=== PATIENT | male | born 1940 | race African-American/Black ===

== ENCOUNTER 2019-10-16 09:32 | Inpatient (IN) | payer MEDICARE, OTHER ==
[2019-10-16] MEDS ORDERED: DILTIAZEM HCL INJ 25 MG/5 ML VIAL IV ONE ×3 (10:18→17:45)
[2019-10-16] MEDS ORDERED: DILTIAZEM HCL/D5W 125 MG/125 ML RTUINJ IV PRN (10:18)
--- NOTE | 2019-10-16 10:26 | ER Document Report ---
ED General - General Chief Complaint: Altered Mental Status Stated Complaint: ALTERED MENTAL STATTUS Time Seen by Provider: 10/16/19 10:05 - HPI Notes: 78-year-old man with long-standing history of type 2 diabetes and chronic atrial fibrillation who is been marginally compliant with medications and is now brought to emergency department for evaluation of generalized weakness and mild altered mental status accompanied here by his [id number] who is his primary control analyst. Patient says that he feels nauseated but denies other more specific complaints at this time. Specifically he denies chest pain or shortness of breath and he denies vomiting, fever, chills or dysuria. Onset Duration: Insidious onset over several days. Precipitating factors: Missed medication. Relieving factors none. Severity moderate. - Related Data Allergies/Adverse Reactions: No Known Allergies Allergy (Unverified 10/16/19 10:53) Past Medical History - General Information source: Patient, Relative Cannot obtain history due to: Altered mental status - Social History Smoking Status: Unknown if Ever Smoked Family History: Reviewed & Not Pertinent - Past Medical History Cardiac Medical History: Reports: Hx Atrial Fibrillation Endocrine Medical History: Reports: Hx Diabetes Mellitus Type 2 Review of Systems - Review of Systems Notes: Constitutional: Negative for fever. HENT: Negative for sore throat. Eyes: Negative for visual changes. Cardiovascular: Negative for chest pain. Respiratory: Negative for shortness of breath. Gastrointestinal: Nausea present. Negative for abdominal pain, vomiting or d iarrhea. Genitourinary: Negative for dysuria. Musculoskeletal: Negative for back pain. Skin: Negative for rash. Neurological: Negative for headaches, focal weakness or numbness. 10 point ROS negative except as marked above and in HPI. Physical Exam - Vital signs Vitals: BP Pulse Ox 153/110 H 99 10/16/19 09:41 10/16/19 09:41 Notes: GENERAL: Mildly obese, well-nourished appearing in no acute distress. SKIN: Good turgor no rashes. HEAD: Normocephalic atraumatic. EYES: PERRLA. Conjunctivae and sclerae clear. EARS: CANALS AND TMS CLEAR. NOSE: CLEAR. MOUTH: Tacky mucosa. Good dentition. No stridor or edema. No drooling. NECK: Supple. No masses or thyromegaly. No adenopathy. Carotids 2+ without bruits. No JVD. BACK: Symmetrical without tenderness. CHEST: Respirations unlabored. Breath sounds clear and symmetrical. HEART: Rapid irregularly irregular rhythm. No murmur gallop or rub. ABDOMEN: Soft nontender without masses, organomegaly or rebound. Bowel sounds normally active. No bruits. GENITALIA: Deferred. EXTREMITIES: No edema. No calf tenderness. Cap refill less than 1.5 seconds. Dorsalis pedis and posterior tibial pulses 3+ and symmetrical. NEUROLOGICAL: GCS 14 with subtraction for temporal disorientation. Responses are slightly slow but appropriate. Alert and oriented x3. Normal gait. Fluent speech. Cranial nerves II through XII intact. Sensorimotor and cerebellar normal. Normal tone. Course - Vital Signs Vital signs: Temp Pulse Resp BP Pulse Ox 97.9 F 16 154/111 H 95 10/16/19 15:50 10/16/19 16:01 10/16/19 15:27 10/16/19 16:01 - Laboratory Result Diagrams: 10/16/19 10:12 10/16/19 14:59 Laboratory results interpreted by me: 10/16/19 10/16/19 10/16/19 09:47 10:12 11:01 WBC 10.9 H Plt Count 140 L Band Neutrophils % 2 L Lymphocytes % (Manual) 9 L Abs Neuts (Manual) 8.6 H VBG pH 7.28 L VBG pCO2 30.8 L VBG HCO3 14.3 L Sodium Carbon Dioxide Anion Gap BUN Creatinine Est GFR (MDRD) Non-Af Glucose POC Glucose 469 H* Direct Bilirubin NT-Pro-B Natriuret Pep 10/16/19 10/16/19 14:59 14:59 WBC Plt Count Band Neutrophils % Lymphocytes % (Manual) Abs Neuts (Manual) VBG pH VBG pCO2 VBG HCO3 Sodium 135.3 L Carbon Dioxide 10 L* Anion Gap 26 H BUN 39 H Creatinine 1.39 H Est GFR (MDRD) Non-Af 49 L Glucose 498 H* POC Glucose Direct Bilirubin 0.5 H NT-Pro-B Natriuret Pep 3650 H Critical Care Note - Critical Care Note Total time excluding time spent on procedures (mins): 35 Comments: Patient will receive IV diltiazem bolus and drip at this time. Discharge - Discharge Clinical Impression: Diabetic ketoacidosis, Dehydration, Atrial fibrillation with rapid ventricular response Condition: Serious Disposition: ADMITTED INPATIENT Admitting Provider: Ty Unit Admitted: ESTEPHANIA
[2019-10-16 10:28] LABS: HEMATOCRIT 45.8 % (37.9-51.0); HEMOGLOBIN 15.3 g/dL (13.5-17.0); MEAN CORPUSCULAR HEMOGLOBIN 31.2 pg (27.0-33.4); MEAN CORPUSCULAR HGB CONC 33.4 g/dL (32.0-36.0); MEAN CORPUSCULAR VOLUME 93 fl (80-97); PLATELET COUNT 140 10^3/uL (150-450); RED CELL DISTRIBUTION WIDTH 13.6 % (11.5-14.0); WHITE BLOOD COUNT 10.9 10^3/uL (4.0-10.5)
[2019-10-16 10:56] LABS: ABSOLUTE MONOCYTES # (MANUAL) 1.3 10^3/uL (0.1-1.4); BAND NEUTROPHILS % (MANUAL) 2 % (3-5); BASOPHILS % (MANUAL) 0 % (0-2); EOSINOPHILS % (MANUAL) 0 % (0-6); LYMPHOCYTES % (MANUAL) 9 % (13-45); MONOCYTES % (MANUAL) 12 % (3-13); RBC MORPHOLOGY COMMENT NORMO-CYTIC/CHROMIC; SEGMENTED NEUTROPHILS % (MAN) 77 % (42-78); TOTAL CELLS COUNTED 100
[2019-10-16 10:57] LABS: PLATELET COMMENT ADEQUATE
--- NOTE | 2019-10-16 11:06 | RADIOLOGY REPORT (SQ) ---
EXAM DESCRIPTION: CHEST SINGLE VIEW COMPLETED DATE/TIME: 10/16/2019 10:53 am REASON FOR STUDY: AF COMPARISON: None. EXAM PARAMETERS: NUMBER OF VIEWS: One view. TECHNIQUE: Single frontal radiographic view of the chest acquired. RADIATION DOSE: NA LIMITATIONS: None. FINDINGS: LUNGS AND PLEURA: No consolidation, sizable pleural effusion or pneumothorax. MEDIASTINUM AND HILAR STRUCTURES: No mediastinal or hilar contour abnormality. HEART AND VASCULAR STRUCTURES: Borderline cardiomegaly. The pulmonary vasculature is within normal l imits. BONES: No acute findings. HARDWARE: None in the chest. OTHER: No other findings. IMPRESSION: Borderline cardiomegaly without a superimposed acute cardiopulmonary process. TECHNICAL DOCUMENTATION: JOB ID: [id number] [employer]- All Rights Reserved Reading location - IP/workstation name: [email or web address]
[2019-10-16 11:22] LABS: VENOUS BLOOD BASE EXCESS -10.9 mmol/L; VENOUS BLOOD HCO3 14.3 mmol/L (20-32); VENOUS BLOOD PCO2 30.8 mmHg (35-63); VENOUS BLOOD PH 7.28 (7.30-7.42)
[2019-10-16 15:36] LABS: ALBUMIN 3.8 g/dL (3.5-5.0); ALKALINE PHOSPHATASE 85 U/L (38-126); ASPARTATE AMINO TRANSFERASE 22 U/L (17-59); BILIRUBIN,DIRECT 0.5 mg/dL (0.0-0.4); BILIRUBIN,TOTAL 1.2 mg/dL (0.2-1.3); BLOOD UREA NITROGEN 39 mg/dL (7-20); CALCIUM 9.2 mg/dL (8.4-10.2); CREATINE KINASE 102 U/L (55-170); DIGOXIN 1.52 ng/mL (0.8-2.0); POTASSIUM 4.2 mmol/L (3.6-5.0); TOTAL PROTEIN 6.8 g/dL (6.3-8.2)
[2019-10-16 15:40] LABS: CHLORIDE 99 mmol/L (98-107)
[2019-10-16 15:43] LABS: GLUCOSE 498 mg/dL (75-110)
[2019-10-16 15:44] LABS: ANION GAP 26 (5-19); CARBON DIOXIDE 10 mmol/L (22-30)
[2019-10-16 15:46] LABS: CREATINE KINASE MB 1.48 ng/mL (<4.55)
[2019-10-16 16:01] LABS: TROPONIN I 0.039 ng/mL
[2019-10-16] MEDS ORDERED: LIDOCAINE 1% INJ-PF (10 MG/ML) 30 ML SDV ONE (16:24)
[2019-10-16] MEDS ORDERED: GLUCAGON,HUMAN RECOMB 1 MG INJ IM PRN ×2 (16:51→18:41)
[2019-10-16] MEDS ORDERED: NORMAL SALINE 100 ML with INSULIN REGULAR, HUMAN 100 UNIT IV PRN ×4 (16:51→18:41)
[2019-10-16] MEDS ORDERED: DEXTROSE 50%-WATER 25 GM/50 ML DISP.SYRIN IV PRN ×4 (16:51→18:41)
[2019-10-16] MEDS ORDERED: DEXTROSE 40% GEL 15 GM TUBE PO PRN ×4 (16:51→18:41)
[2019-10-16] MEDS ORDERED: NORMAL SALINE 1000 ML 1,000 ML IV ONE (16:54)
--- NOTE | 2019-10-16 17:42 | RADIOLOGY REPORT (SQ) ---
EXAM DESCRIPTION: CHEST SINGLE VIEW COMPLETED DATE/TIME: 10/16/2019 5:24 pm REASON FOR STUDY: line placement COMPARISON: 10/16/2019 EXAM PARAMETERS: NUMBER OF VIEWS: One view. TECHNIQUE: Single frontal radiographic view of the chest acquired. RADIATION DOSE: NA LIMITATIONS: None. FINDINGS: LUNGS AND PLEURA: No opacities, masses or pneumothorax. No pleural effusion. MEDIASTINUM AND HILAR STRUCTURES: No masses. Contour normal. HEART AND VASCULAR STRUCTURES: Stable mild cardiomegaly BONES: No acute findings. HARDWARE: Right jugular central line tip superior vena cava OTHER: No other significant finding. IMPRESSION: Right jugular central line tip superior vena cava, no pneumothorax. Mild cardiomegaly TECHNICAL DOCUMENTATION: JOB ID: [id number] [employer]- All Rights Reserved Reading location - IP/workstation name: [email or web address]
[2019-10-16] MEDS ORDERED: LIDOCAINE 1% INJ-PF (10 MG/ML) 30 ML SDV INFIL ONE (18:13)
[2019-10-16] MEDS ORDERED: NORMAL SALINE 1000 ML 1,000 ML IV PRN (18:41)
[2019-10-16] MEDS ORDERED: (PENDING PHARMACY ID) (Acetaminophen [Tylenol Extra Strength 500 Mg Tablet] 500 MG) PO PRN (18:52)
--- NOTE | 2019-10-16 18:54 | PDOC H&P ---
History of Present Illness Admission Date/PCP: 10/16/19 17:47 DESIRAE STEWART MD History of Present Illness: OREN CONTRERAS is a 78 year old male, he has a history of chronic atrial fib rillation, type 2 diabetes mellitus, he was on the schedule to be seen in the office but did not show up, he was brought to the emergency room by the [id number] for evaluation of altered mental status, in the emergency room he was found to be in DKA with atrial fibrillation with rapid ventricular response. Patient apparently has not been compliant with his medication, he has poor medication adherence, is confused cannot answer question appropriately. The serum glucose was 498 when he presented to the ER the anion gap was 26, venous pH was 7.28, he was started on insulin drip and also Cardizem drip and admitted to intermediate care unit for further evaluation. Past Medical History Cardiac Medical History: Reports: Atrial Fibrillation, Hypertension Endocrine Medical History: Reports: Diabetes Mellitus Type 2 Past Surgical History Past Surgical History: Reports: Cardiac Catheterization Social History Smoking Status: Never Smoker Family History Family History: Reviewed & Not Pertinent Parental Family History Reviewed: Yes Children Family History Reviewed: Yes Sibling(s) Family History Reviewed.: Yes Medication/Allergy Home Medications: Acetaminophen [Tylenol Extra Strength 500 mg Tablet] 500 mg PO Q6HP PRN 10/16/19 Atorvastatin Calcium [Lipitor 20 mg Tablet] 20 mg PO DAILY 10/16/19 Digoxin [Lanoxin 0.125 mg Tablet] 0.125 mg PO DAILY 10/16/19 Empagliflozin [Jardiance] 25 mg PO DAILY 10/16/19 Melatonin [Melatonin 3 mg Tablet] 3 mg PO QPM 10/16/19 Metoprolol Tartrate [Lopressor 25 mg Tablet] 25 mg PO Q12 10/16/19 Rivaroxaban [Xarelto] 20 mg PO DAILY 10/16/19 Sertraline HCl [Zoloft] 25 mg PO DAILY 10/16/19 Sitagliptin Phos/Metformin HCl [Janumet Xr 100-1,000 mg Tablet] 1 each PO QPM 10/16/19 Allergies/Adverse Reactions: No Known Allergies Allergy (Unverified 10/16/19 10:53) Review of Systems ROS unobtainable: Due to mental status Physical Exam Vital Signs: Temp Pulse Resp BP Pulse Ox 97.9 F 16 154/111 H 95 10/16/19 15:50 10/16/19 16:01 10/16/19 15:27 10/16/19 16:01 Intake & Output 10/15/19 10/16/19 10/17/19 06:59 06:59 06:59 Intake Total 5 Balance 5 Weight 104.7 kg General appearance: PRESENT: no acute distress Head exam: PRESENT: atraumatic, normocephalic Eye exam: PRESENT: conjunctiva pink, EOMI, PERRLA Ear exam: PRESENT: normal external ear exam Mouth exam: PRESENT: moist, tongue midline Neck exam: PRESENT: full ROM Respiratory exam: PRESENT: clear to auscultation kamla Cardiovascular exam: PRESENT: RRR, +S1, +S2 Vascular exam: PRESENT: normal capillary refill GI/Abdominal exam: PRESENT: normal bowel sounds, soft Rectal exam: PRESENT: deferred Neurological exam: PRESENT: alert, CN II-XII grossly intact Psychiatric exam: PRESENT: appropriate affect, normal mood Skin exam: PRESENT: dry, intact, warm Results Laboratory Results: 10/16/19 10:12 10/16/19 14:59 10/16/19 10/16/19 10/16/19 10:12 10:12 10:12 WBC 10.9 H RBC 4.90 Hgb 15.3 Hct 45.8 MCV 93 MCH 31.2 MCHC 33.4 RDW 13.6 Plt Count 140 L Seg Neutrophils % Not Reportable VBG pH VBG pCO2 VBG HCO3 VBG Base Excess Sodium Cancelled Cancelled Potassium Cancelled Cancelled Chloride Cancelled Cancelled Carbon Dioxide Cancelled Cancelled Anion Gap Cancelled Cancelled BUN Cancelled Cancelled Creatinine Cancelled Cancelled Est GFR ( Amer) Cancelled Cancelled Est GFR (Non-Af Amer) Cancelled Cancelled Glucose Cancelled Cancelled Lactic Acid Calcium Cancelled Cancelled Total Bilirubin Cancelled Cancelled AST Cancelled Cancelled Alkaline Phosphatase Cancelled Cancelled Total Protein Cancelled Cancelled Albumin Cancelled Cancelled 10/16/19 10/16/19 10/16/19 11:01 14:59 14:59 WBC RBC Hgb Hct MCV MCH MCHC RDW Plt Count Seg Neutrophils % VBG pH 7.28 L VBG pCO2 30.8 L VBG HCO3 14.3 L VBG Base Excess -10.9 Sodium 135.3 L Potassium 4.2 Chloride 99 Carbon Dioxide 10 L* Anion Gap 26 H BUN 39 H Creatinine 1.39 H Est GFR ( Amer) > 60 Est GFR (Non-Af Amer) Glucose 498 H* Lactic Acid 2.0 Calcium 9.2 Total Bilirubin 1.2 AST 22 Alkaline Phosphatase 85 Total Protein 6.8 Albumin 3.8 10/16/19 10/16/19 10/16/19 10:12 10:12 10:12 Creatine Kinase Cancelled Cancelled CK-MB (CK-2) Cancelled Troponin I Cancelled NT-Pro-B Natriuret Pep Cancelled 10/16/19 10/16/19 10/16/19 10:12 14:59 14:59 Creatine Kinase 102 CK-MB (CK-2) Cancelled 1.48 Troponin I Cancelled 0.039 NT-Pro-B Natriuret Pep Cancelled 3650 H Impressions: Chest X-Ray 10/16/19 16:45 IMPRESSION: Right jugular central line tip superior vena cava, no pneumothorax. Mild cardiomegaly Assessment & Plan - Diagnosis (1) Diabetic ketoacidosis Qualifiers: Diabetes mellitus type: type 2 Diabetes mellitus complication detail: without coma Qualified Code(s): E11.10 - Type 2 diabetes mellitus with ketoacidosis without coma Is this a current diagnosis for this admission?: Yes Plan: Patient in DKA the most likely etiology is because of poor medication adherence, he will be treated with insulin drip and also start his regular medication (2) Atrial fibrillation with rapid ventricular response Is this a current diagnosis for this admission?: Yes Plan: Continue with intravenous Cardizem for rate control, patient already on anticoagulant
[2019-10-16] MEDS ORDERED: (PENDING PHARMACY ID) (Sitagliptin Phos/Metformin Hcl [Janumet Xr 100-1,000 Mg Tablet] 1 E PO SCH (19:00)
[2019-10-16] MEDS ORDERED: (PENDING PHARMACY ID) (Sertraline Hcl [Zoloft] 25 MG) PO SCH (19:00)
[2019-10-16] MEDS ORDERED: ENOXAPARIN SODIUM INJ 40 MG/0.4 ML DISP.SYRIN SUBCUT SCH (19:00)
[2019-10-16] MEDS ORDERED: (PENDING PHARMACY ID) (Empagliflozin [Jardiance] 25 MG) PO SCH (19:00)
[2019-10-16] MEDS ORDERED: INSULIN REG, HUMAN 100 UNIT/ML 3 ML VIAL (PYX) ONE (19:12)
[2019-10-16] MEDS ORDERED: ACETAMINOPHEN 325 MG TABLET PO PRN (19:25)
[2019-10-16 20:06] LABS: FREE T4 (FREE THYROXINE) 1.2 ng/dL (0.78-2.19)
[2019-10-16 20:20] LABS: THYROID STIMULATING HORMONE 0.51 uIU/mL (0.47-4.68)
[2019-10-16] MEDS: DILTIAZEM HCL/D5W 125 MG/125 ML RTUINJ IV PRN (21:18)
[2019-10-16 22:14] LABS: BLOOD UREA NITROGEN 38 mg/dL (7-20); CALCIUM 8.9 mg/dL (8.4-10.2); CARBON DIOXIDE 14 mmol/L (22-30); GLUCOSE 348 mg/dL (75-110); POTASSIUM 3.6 mmol/L (3.6-5.0)
[2019-10-16 22:20] LABS: CHLORIDE 103 mmol/L (98-107)
[2019-10-16 22:25] LABS: ANION GAP 21 (5-19)
[2019-10-16 22:26] LABS: CREATINE KINASE MB 1.4 ng/mL (<4.55); TROPONIN I 0.04 ng/mL
[2019-10-16] MEDS: RIVAROXABAN 10 MG TABLET PO SCH (22:35)
[2019-10-16] MEDS: ATORVASTATIN CALCIUM 20 MG TABLET PO SCH (22:36)
[2019-10-16] MEDS: MELATONIN 3 MG TABLET PO SCH (22:36)
[2019-10-16] MEDS: METOPROLOL TARTRATE 25 MG TABLET PO SCH (22:36)
[2019-10-16] MEDS: DIGOXIN 0.125 MG TABLET PO SCH (22:38)
[2019-10-17] MEDS ORDERED: INFLUENZA QUAD (6MOS+) 2019-20 VAC 0.5 ML SYR IM ONE (01:37)
[2019-10-17 02:59] LABS: ANION GAP 12 (5-19); BLOOD UREA NITROGEN 38 mg/dL (7-20); CALCIUM 8.8 mg/dL (8.4-10.2); CARBON DIOXIDE 23 mmol/L (22-30); CHLORIDE 104 mmol/L (98-107); GLUCOSE 117 mg/dL (75-110); POTASSIUM 3.2 mmol/L (3.6-5.0)
[2019-10-17 06:05] LABS: INTERNATIONAL RATION (INR) 2.06; PROTHROMBIN TIME 23.5 SEC (11.4-15.4)
[2019-10-17 06:15] LABS: HEMATOCRIT 43.6 % (37.9-51.0); HEMOGLOBIN 14.4 g/dL (13.5-17.0); MEAN CORPUSCULAR HEMOGLOBIN 30.8 pg (27.0-33.4); MEAN CORPUSCULAR HGB CONC 33.1 g/dL (32.0-36.0); MEAN CORPUSCULAR VOLUME 93 fl (80-97); PLATELET COUNT 135 10^3/uL (150-450); RED BLOOD COUNT 4.69 10^6/uL (4.35-5.55); RED CELL DISTRIBUTION WIDTH 13.7 % (11.5-14.0); WHITE BLOOD COUNT 11.9 10^3/uL (4.0-10.5)
[2019-10-17 06:22] LABS: ALBUMIN 3.3 g/dL (3.5-5.0); ALKALINE PHOSPHATASE 76 U/L (38-126); ANION GAP 18 (5-19); ASPARTATE AMINO TRANSFERASE 20 U/L (17-59); BILIRUBIN,DIRECT 0.5 mg/dL (0.0-0.4); BILIRUBIN,TOTAL 1.2 mg/dL (0.2-1.3); BLOOD UREA NITROGEN 38 mg/dL (7-20); CALCIUM 8.9 mg/dL (8.4-10.2); CARBON DIOXIDE 17 mmol/L (22-30); CHLORIDE 105 mmol/L (98-107); CHOLESTEROL 222.57 mg/dL (0-200); GLUCOSE 235 mg/dL (75-110); PHOSPHORUS 4.3 mg/dL (2.5-4.5); POTASSIUM 3.7 mmol/L (3.6-5.0); TOTAL PROTEIN 5.9 g/dL (6.3-8.2); TRIGLYCERIDES 122 mg/dL (<150)
[2019-10-17 06:33] LABS: CREATINE KINASE MB 1.49 ng/mL (<4.55); DIRECT LDL 185 mg/dL (<100); TROPONIN I 0.039 ng/mL
[2019-10-17 06:45] LABS: ABSOLUTE LYMPHOCYTES# (MANUAL) 0.8 10^3/uL (0.5-4.7); ABSOLUTE MONOCYTES # (MANUAL) 1.2 10^3/uL (0.1-1.4); BASOPHILS % (MANUAL) 0 % (0-2); EOSINOPHILS % (MANUAL) 0 % (0-6); LYMPHOCYTES % (MANUAL) 7 % (13-45); MONOCYTES % (MANUAL) 10 % (3-13); SEGMENTED NEUTROPHILS % (MAN) 83 % (42-78); TOTAL CELLS COUNTED 100
[2019-10-17 06:46] LABS: PLATELET COMMENT DECREASED; RBC MORPHOLOGY COMMENT NORMO-CYTIC/CHROMIC
[2019-10-17] MEDS: INSULIN LISPRO 100 UNIT/ML 3 ML VIAL SUBCUT SCH ×4 (08:23→21:26)
[2019-10-17] MEDS: METFORMIN HCL 500 MG TABLET PO SCH ×2 (08:23→17:02)
[2019-10-17] MEDS: SITAGLIPTIN PHOSPHATE 50 MG TABLET PO SCH ×2 (08:23→17:01)
[2019-10-17] MEDS: DILTIAZEM HCL/D5W 125 MG/125 ML RTUINJ IV PRN (08:24)
[2019-10-17] MEDS: SERTRALINE HCL 50 MG TABLET PO SCH (09:13)
[2019-10-17] MEDS: ATORVASTATIN CALCIUM 20 MG TABLET PO SCH (09:13)
[2019-10-17] MEDS: METOPROLOL TARTRATE 25 MG TABLET PO SCH ×2 (09:13→21:25)
[2019-10-17] MEDS: DIGOXIN 0.125 MG TABLET PO SCH (09:13)
[2019-10-17] MEDS: RIVAROXABAN 10 MG TABLET PO SCH (09:13)
--- NOTE | 2019-10-17 11:48 | EKG REPORT ---
SEVERITY:- ABNORMAL ECG - ATRIAL FIBRILLATION, V-RATE 61-139 LEFT ANTERIOR FASCICULAR BLOCK CONSIDER ANTEROSEPTAL INFARCT NONSPECIFIC T ABNORMALITIES, LATERAL LEADS BORDERLINE PROLONGED QT INTERVAL : Confirmed by: Remedios More MD 17-Oct-2019 11:48:07
[2019-10-17 12:33] LABS: ANION GAP 15 (5-19); BLOOD UREA NITROGEN 41 mg/dL (7-20); CALCIUM 8.5 mg/dL (8.4-10.2); CARBON DIOXIDE 19 mmol/L (22-30); CHLORIDE 100 mmol/L (98-107); CREATINE KINASE 54 U/L (55-170); GLUCOSE 295 mg/dL (75-110); POTASSIUM 3.6 mmol/L (3.6-5.0)
[2019-10-17 12:42] LABS: CREATINE KINASE MB 1.22 ng/mL (<4.55); TROPONIN I 0.024 ng/mL
--- NOTE | 2019-10-17 13:44 | PDOC PROGRESS REPORT ---
Subjective Progress Note for:: 10/17/19 Subjective:: Patient seen by the bedside, he was admitted yesterday for DKA, A. fib with RVR. Presently on Cardizem infusion, Cardizem drip is prepared in 5% dextrose, that is not good for his diabetes, DC Cardizem drip, continue digoxin and beta- anne, metoprolol, ordered 2D echo for LV function evaluation Reason For Visit: DIABETIC KETOACIDOSIS DEHYDRATION ATRIAL Physical Exam Vital Signs: Temp Pulse Resp BP Pulse Ox 97.6 F 79 18 114/71 98 10/17/19 11:27 10/17/19 11:27 10/17/19 11:27 10/17/19 11:27 10/17/19 11:27 Intake & Output 10/16/19 10/17/19 10/18/19 06:59 06:59 06:59 Intake Total 493 0 Balance 493 0 Weight 103.7 kg General appearance: PRESENT: no acute distress Head exam: PRESENT: atraumatic, normocephalic Eye exam: PRESENT: conjunctiva pink, EOMI, PERRLA Ear exam: PRESENT: normal external ear exam Neck exam: PRESENT: full ROM Respiratory exam: PRESENT: clear to auscultation kamla Cardiovascular exam: PRESENT: RRR, +S1, +S2 Vascular exam: PRESENT: normal capillary refill GI/Abdominal exam: PRESENT: normal bowel sounds, soft Rectal exam: PRESENT: deferred Neurological exam: PRESENT: alert, awake, oriented to person, oriented to place, oriented to time, oriented to situation, CN II-XII grossly intact Psychiatric exam: PRESENT: appropriate affect, normal mood Skin exam: PRESENT: dry, intact, warm Results Laboratory Results: 10/17/19 05:40 10/17/19 11:40 10/16/19 10/16/19 10/16/19 14:59 14:59 14:59 WBC RBC Hgb Hct MCV MCH MCHC RDW Plt Count Seg Neutrophils % Sodium 135.3 L Potassium 4.2 Chloride 99 Carbon Dioxide 10 L* Anion Gap 26 H BUN 39 H Creatinine 1.39 H Est GFR ( Amer) > 60 Glucose 498 H* Lactic Acid 2.0 Calcium 9.2 Phosphorus Magnesium Total Bilirubin 1.2 AST 22 Alkaline Phosphatase 85 Total Protein 6.8 Albumin 3.8 Triglycerides Cholesterol LDL Cholesterol Direct VLDL Cholesterol HDL Cholesterol Lipase 279.9 TSH Free T4 10/16/19 10/16/19 10/17/19 14:59 21:15 02:30 WBC RBC Hgb Hct MCV MCH MCHC RDW Plt Count Seg Neutrophils % Sodium 137.9 138.6 Potassium 3.6 3.2 L Chloride 103 104 Carbon Dioxide 14 L 23 Anion Gap 21 H 12 BUN 38 H 38 H Creatinine 1.33 H 1.25 Est GFR ( Amer) > 60 > 60 Glucose 348 H 117 H Lactic Acid Calcium 8.9 8.8 Phosphorus Magnesium Total Bilirubin AST Alkaline Phosphatase Total Protein Albumin Triglycerides Cholesterol LDL Cholesterol Direct VLDL Cholesterol HDL Cholesterol Lipase TSH 0.51 Free T4 1.20 10/17/19 10/17/19 10/17/19 05:40 05:40 11:40 WBC 11.9 H RBC 4.69 Hgb 14.4 Hct 43.6 MCV 93 MCH 30.8 MCHC 33.1 RDW 13.7 Plt Count 135 L Seg Neutrophils % Not Reportable Sodium 139.5 133.6 L Potassium 3.7 3.6 Chloride 105 100 Carbon Dioxide 17 L 19 L Anion Gap 18 15 BUN 38 H 41 H Creatinine 1.32 H 1.31 H Est GFR ( Amer) > 60 > 60 Glucose 235 H 295 H Lactic Acid Calcium 8.9 8.5 Phosphorus 4.3 Magnesium 2.3 Total Bilirubin 1.2 AST 20 Alkaline Phosphatase 76 Total Protein 5.9 L Albumin 3.3 L Triglycerides 122 Cholesterol 222.57 H LDL Cholesterol Direct 185 H VLDL Cholesterol 24.0 HDL Cholesterol 34 L Lipase TSH Free T4 10/16/19 10/16/19 10/16/19 10:12 10:12 10:12 Creatine Kinase Cancelled Cancelled CK-MB (CK-2) Cancelled Troponin I Cancelled NT-Pro-B Natriuret Pep Cancelled 10/16/19 10/16/19 10/16/19 10:12 14:59 14:59 Creatine Kinase 102 CK-MB (CK-2) Cancelled 1.48 Troponin I Cancelled 0.039 NT-Pro-B Natriuret Pep Cancelled 3650 H 10/16/19 10/16/19 10/16/19 21:15 21:15 21:15 Creatine Kinase 86 CK-MB (CK-2) 1.40 Troponin I 0.040 NT-Pro-B Natriuret Pep 3010 H 10/17/19 10/17/19 10/17/19 05:40 05:40 11:40 Creatine Kinase 67 CK-MB (CK-2) 1.49 1.22 Troponin I 0.039 0.024 NT-Pro-B Natriuret Pep 10/17/19 11:40 Creatine Kinase 54 L CK-MB (CK-2) Troponin I NT-Pro-B Natriuret Pep Impressions: Chest X-Ray 10/16/19 16:45 IMPRESSION: Right jugular central line tip superior vena cava, no pneumothorax. Mild cardiomegaly Assessment & Plan - Diagnosis (1) Diabetic ketoacidosis Qualifiers: Diabetes mellitus type: type 2 Diabetes mellitus complication detail: without coma Qualified Code(s): E11.10 - Type 2 diabetes mellitus with ketoacidosis without coma Is this a current diagnosis for this admission?: Yes Plan: Discontinue insulin drip (2) Atrial fibrillation with rapid ventricular response Is this a current diagnosis for this admission?: Yes Plan: Discontinue Cardizem infusion start p.o. meds ordered 2D echo. - Time Time Spent with patient: 35 or more minutes - Plan Summary Plan Summary: I spoke to the patient's family about this condition, plan of care for the patient.
[2019-10-17] MEDS: MELATONIN 3 MG TABLET PO SCH ×2 (17:02→21:26)
[2019-10-18 05:38] LABS: INTERNATIONAL RATION (INR) 1.85; PROTHROMBIN TIME 21.6 SEC (11.4-15.4)
[2019-10-18 05:39] LABS: PARTIAL THROMBOPLASTIN TIME 39.6 SEC (23.5-35.8)
[2019-10-18 05:45] LABS: HEMATOCRIT 43.2 % (37.9-51.0); HEMOGLOBIN 14.6 g/dL (13.5-17.0); MEAN CORPUSCULAR HEMOGLOBIN 31.2 pg (27.0-33.4); MEAN CORPUSCULAR HGB CONC 33.7 g/dL (32.0-36.0); MEAN CORPUSCULAR VOLUME 93 fl (80-97); PLATELET COUNT 118 10^3/uL (150-450); RED BLOOD COUNT 4.67 10^6/uL (4.35-5.55); RED CELL DISTRIBUTION WIDTH 13.9 % (11.5-14.0); WHITE BLOOD COUNT 10.5 10^3/uL (4.0-10.5)
[2019-10-18 05:54] LABS: ALKALINE PHOSPHATASE 68 U/L (38-126); ASPARTATE AMINO TRANSFERASE 18 U/L (17-59); BILIRUBIN,DIRECT 0.2 mg/dL (0.0-0.4); BILIRUBIN,TOTAL 0.9 mg/dL (0.2-1.3); PHOSPHORUS 3.8 mg/dL (2.5-4.5); TOTAL PROTEIN 5.4 g/dL (6.3-8.2)
[2019-10-18 06:38] LABS: ABSOLUTE LYMPHOCYTES# (MANUAL) 1.3 10^3/uL (0.5-4.7); ABSOLUTE MONOCYTES # (MANUAL) 1.2 10^3/uL (0.1-1.4); BAND NEUTROPHILS % (MANUAL) 2 % (3-5); BASOPHILS % (MANUAL) 0 % (0-2); EOSINOPHILS % (MANUAL) 1 % (0-6); LYMPHOCYTES % (MANUAL) 12 % (13-45); MONOCYTES % (MANUAL) 11 % (3-13); PLATELET COMMENT DECREASED; RBC MORPHOLOGY COMMENT NORMO-CYTIC/CHROMIC; SEGMENTED NEUTROPHILS % (MAN) 74 % (42-78); TOTAL CELLS COUNTED 100
[2019-10-18] MEDS: SITAGLIPTIN PHOSPHATE 50 MG TABLET PO SCH ×2 (08:13→16:48)
[2019-10-18] MEDS: METFORMIN HCL 500 MG TABLET PO SCH ×2 (08:13→16:48)
[2019-10-18] MEDS: INSULIN LISPRO 100 UNIT/ML 3 ML VIAL SUBCUT SCH ×4 (08:14→21:37)
[2019-10-18] MEDS: RIVAROXABAN 10 MG TABLET PO SCH (09:33)
[2019-10-18] MEDS: SERTRALINE HCL 50 MG TABLET PO SCH (09:33)
[2019-10-18] MEDS: METOPROLOL TARTRATE 25 MG TABLET PO SCH (09:33)
[2019-10-18] MEDS: DIGOXIN 0.125 MG TABLET PO SCH (09:33)
[2019-10-18] MEDS: ATORVASTATIN CALCIUM 20 MG TABLET PO SCH (09:33)
--- NOTE | 2019-10-18 11:43 | XCELERA REPORT ---
[address] [address] Transthoracic Echocardiogram Report Name: OREN CONTRERAS Age: 78 yrs Gender: Male : 1940 Patient Status: Inpatient Patient Location: [address] [place], [place] [id number] Study Date: 10/17/2019 03:33 PM Height: 67 in Weight: 228 lb BSA: 2.1 m2 Procedure: A two-dimensional transthoracic echocardiogram with color flow and Doppler was performed. Study Quality: Technically suboptimal. The study was technically difficult with many images being suboptimal in quality. Reason For Study: atrial fib History: ATRIAL FIBRILLATION. Ordering Physician: DESIRAE STEWART Performed By: Arin Allen Interpretation Summary A two-dimensional transthoracic echocardiogram with color flow and Doppler was performed. The left ventricle is mildly dilated. There is normal left ventricular wall thickness. LV EF is 30% TO 35% Left ventricular systolic function is moderate to severely reduced. There is moderate to severe global hypokinesis of the left ventricle. There is no thrombus. Cannot assess ASD ,VSD , or PFO. The right ventricle is not well visualized secondary to technical limitations Right atrium not well visualized secondary to technical limitations LA is mild to moderately dilated. There is no evidence of mitral valve prolapse. There is no vegetation seen on the mitral valve. There is no mitral valve stenosis. There is a moderate amount of mitral regurgitation There is no aortic valvular vegetation. There is aortic sclerosis without aortic stenosis. There is no LVOT obstruction. There is a trace amount of aortic regurgitation There is no tricuspid stenosis. There is a trace amount of tricuspid regurgitation Upper normal RVSP to Early mild pulmonary hypertensionn.RVSP is 27 to 32 mm of Hg , with RA mean of 5 to 10. There is no pulmonic valvular stenosis. There is no pulmonic valvular regurgitation. The aortic root is not well visualized but is probably normal size. The inferior vena cava appeared normal and decreased > 50% with respiration (RAP 5-10 mmHg) There is no pericardial effusion. MMode/2D Measurements & Calculations IVSd: 0.70 cm LVIDd: 5.4 cm FS: 29.3 % Ao root diam: 2.4 cm LVIDs: 3.8 cm EDV(Teich): 140.8 ml Ao root area: 4.7 cm2 LVPWd: 1.1 cm ESV(Teich): 62.4 ml EF(Teich): 55.7 % Doppler Measurements & Calculations MV E max flores: MV dec slope: Ao V2 max: LV V1 max P.5 cm/sec 742.2 cm/sec2 110.6 cm/sec 2.9 mmHg MV A max flores: MV dec time: 0.13 secAo max PG: LV V1 max: 26.0 cm/sec 4.9 mmHg 84.7 cm/sec MV E/A: 3.7 PA V2 max: TR max flores: 85.9 cm/sec 232.0 cm/sec PA max P.0 mmHg TR max P.5 mmHg Left Ventricle The left ventricle is mildly dilated. There is normal left ventricular wall thickness. LV EF is 30% TO 35%. Left ventricular systolic function is moderate to severely reduced. LV diastolic function could not be adequately assessed due to atrial fibrilation. There is moderate to severe global hypokinesis of the left ventricle. There is no thrombus. Cannot assess ASD ,VSD , or PFO. Right Ventricle The right ventricle is not well visualized secondary to technical limitations. Atria Right atrium not well visualized secondary to technical limitations. LA is mild to moderately dilated. Mitral Valve There is no evidence of mitral valve prolapse. There is no vegetation seen on the mitral valve. There is no mitral valve stenosis. There is a moderate amount of mitral regurgitation. Aortic Valve There is no aortic valvular vegetation. There is aortic sclerosis without aortic stenosis. There is no LVOT obstruction. There is a trace amount of aortic regurgitation. Tricuspid Valve There is no tricuspid stenosis. There is a trace amount of tricuspid regurgitation. Upper normal RVSP to Early mild pulmonary hypertensionn.RVSP is 27 to 32 mm of Hg , with RA mean of 5 to 10. Pulmonic Valve There is no pulmonic valvular stenosis. There is no pulmonic valvular regurgitation. Great Vessels The aortic root is not well visualized but is probably normal size. The inferior vena cava appeared normal and decreased > 50% with respiration (RAP 5-10 mmHg). Effusions There is no pericardial effusion. : DESIRAE STEWART Lakshmi
[2019-10-18] MEDS: SACUBITRIL/VALSARTAN 24 MG/26 MG TABLET PO SCH ×2 (13:30→21:26)
--- NOTE | 2019-10-18 15:48 | PDOC PROGRESS REPORT ---
Subjective Progress Note for:: 10/18/19 Subjective:: Patient seen by the bedside, the ejection fraction of left ventricle, 35% there is moderate mitral valve regurgitation, mild aortic valve regurgitation Reason For Visit: DIABETIC KETOACIDOSIS DEHYDRATION ATRIAL Physical Exam Vital Signs: Temp Pulse Resp BP Pulse Ox 98.1 F 100 18 131/79 H 97 10/18/19 11:02 10/18/19 14:00 10/18/19 11:02 10/18/19 11:02 10/18/19 11:02 Intake & Output 10/17/19 10/18/19 10/19/19 06:59 06:59 06:59 Intake Total 493 817 240 Output Total 200 Balance 493 617 240 Weight 103.7 kg 102.7 kg General appearance: PRESENT: no acute distress Eye exam: PRESENT: PERRLA Respiratory exam: PRESENT: clear to auscultation kamla Cardiovascular exam: PRESENT: +S1, +S2, systolic murmur GI/Abdominal exam: PRESENT: soft Neurological exam: PRESENT: alert Results Laboratory Results: 10/18/19 04:47 10/17/19 11:40 10/18/19 10/18/19 04:47 04:47 WBC 10.5 RBC 4.67 Hgb 14.6 Hct 43.2 MCV 93 MCH 31.2 MCHC 33.7 RDW 13.9 Plt Count 118 L Seg Neutrophils % Not Reportable Phosphorus 3.8 Magnesium 2.0 Total Bilirubin 0.9 AST 18 Alkaline Phosphatase 68 Total Protein 5.4 L Albumin 3.0 L 10/16/19 10/16/19 10/16/19 10:12 10:12 10:12 Creatine Kinase Cancelled Cancelled CK-MB (CK-2) Cancelled Troponin I Cancelled NT-Pro-B Natriuret Pep Cancelled 10/16/19 10/16/19 10/16/19 10:12 14:59 14:59 Creatine Kinase 102 CK-MB (CK-2) Cancelled 1.48 Troponin I Cancelled 0.039 NT-Pro-B Natriuret Pep Cancelled 3650 H 10/16/19 10/16/19 10/16/19 21:15 21:15 21:15 Creatine Kinase 86 CK-MB (CK-2) 1.40 Troponin I 0.040 NT-Pro-B Natriuret Pep 3010 H 1110/17/19 10/17/19 05:40 05:40 11:40 Creatine Kinase 67 CK-MB (CK-2) 1.49 1.22 Troponin I 0.039 0.024 NT-Pro-B Natriuret Pep 10/17/19 11:40 Creatine Kinase 54 L CK-MB (CK-2) Troponin I NT-Pro-B Natriuret Pep Impressions: Chest X-Ray 10/16/19 16:45 IMPRESSION: Right jugular central line tip superior vena cava, no pneumothorax. Mild cardiomegaly Assessment & Plan - Diagnosis (1) Diabetic ketoacidosis Qualifiers: Diabetes mellitus type: type 2 Diabetes mellitus complication detail: without coma Qualified Code(s): E11.10 - Type 2 diabetes mellitus with ketoacidosis without coma Is this a current diagnosis for this admission?: Yes Plan: Blood sugar elevated, Jardiance is nonformulary in this hospital (2) Atrial fibrillation with rapid ventricular response Is this a current diagnosis for this admission?: Yes (3) Acute systolic heart failure Is this a current diagnosis for this admission?: Yes Plan: Start Entresto, continue metoprolol, consult cardiology - Time Time Spent with patient: 35 or more minutes Level of Care: IMCU
[2019-10-18] MEDS: CARVEDILOL 12.5 MG TABLET PO SCH (21:27)
[2019-10-18] MEDS: MELATONIN 3 MG TABLET PO SCH (21:27)
[2019-10-19 05:56] LABS: INTERNATIONAL RATION (INR) 1.77; PROTHROMBIN TIME 20.8 SEC (11.4-15.4)
[2019-10-19 05:57] LABS: PARTIAL THROMBOPLASTIN TIME 35.2 SEC (23.5-35.8)
[2019-10-19 05:58] LABS: ABSOLUTE LYMPHOCYTES (AUTO) 0.4 10^3/uL (0.5-4.7); ABSOLUTE MONOCYTES (AUTO) 0.8 10^3/uL (0.1-1.4); ABSOLUTE NEUT (AUTO) 6.5 10^3/uL (1.7-8.2); BASOPHILS % (AUTO) 0.1 % (0-2); EOSINOPHILS % (AUTO) 0.4 % (0-6); HEMATOCRIT 41.3 % (37.9-51.0); LYMPHOCYTES % (AUTO) 5.8 % (13-45); MEAN CORPUSCULAR HEMOGLOBIN 31.2 pg (27.0-33.4); MEAN CORPUSCULAR HGB CONC 33.9 g/dL (32.0-36.0); MEAN CORPUSCULAR VOLUME 92 fl (80-97); PLATELET COUNT 113 10^3/uL (150-450); RED BLOOD COUNT 4.49 10^6/uL (4.35-5.55); RED CELL DISTRIBUTION WIDTH 13.7 % (11.5-14.0); SEGMENTED NEUTROPHILS % (AUTO) 83.7 % (42-78); TOTAL CELLS COUNTED % (AUTO) 100 %; WHITE BLOOD COUNT 7.7 10^3/uL (4.0-10.5)
[2019-10-19 06:42] LABS: ALBUMIN 2.6 g/dL (3.5-5.0); ALKALINE PHOSPHATASE 61 U/L (38-126); ASPARTATE AMINO TRANSFERASE 14 U/L (17-59); BILIRUBIN,DIRECT 0.2 mg/dL (0.0-0.4); BILIRUBIN,TOTAL 0.8 mg/dL (0.2-1.3); PHOSPHORUS 3.9 mg/dL (2.5-4.5); TOTAL PROTEIN 4.8 g/dL (6.3-8.2)
[2019-10-19] MEDS: METFORMIN HCL 500 MG TABLET PO SCH ×2 (08:22→16:55)
[2019-10-19] MEDS: INSULIN LISPRO 100 UNIT/ML 3 ML VIAL SUBCUT SCH ×4 (08:22→22:04)
[2019-10-19] MEDS: SITAGLIPTIN PHOSPHATE 50 MG TABLET PO SCH ×2 (08:22→16:55)
[2019-10-19] MEDS: RIVAROXABAN 10 MG TABLET PO SCH (09:34)
[2019-10-19] MEDS: ATORVASTATIN CALCIUM 20 MG TABLET PO SCH (09:34)
[2019-10-19] MEDS: SERTRALINE HCL 50 MG TABLET PO SCH (09:34)
[2019-10-19] MEDS: SACUBITRIL/VALSARTAN 24 MG/26 MG TABLET PO SCH (09:34)
[2019-10-19] MEDS: DIGOXIN 0.125 MG TABLET PO SCH (09:34)
[2019-10-19] MEDS: CARVEDILOL 12.5 MG TABLET PO SCH ×2 (09:34→22:03)
--- NOTE | 2019-10-19 20:52 | PDOC CONSULTATION ---
Consultation-Blank Consultation: CARDIOLOGY CONSULTATION by Dr. Remedios Devine on 10/19/2019. Patient seen at 8 AM. 60 minutes spent on this patient with more than 50% of time spent in direct patient care. REASON FOR CONSULTATION: Atrial fibrillation and left ventricular systolic dysfunction. CONSULT REQUESTING PHYSICIAN: Dr. Crawford. HISTORY PRESENT ILLNESS: Note is very difficult to obtain history from the patient. He is of slow mentation and does not answer questions readily. His chart was reviewed the patient is a 78-year-old Afro-[place] male with a history of chronic atrial fibrillation, hypertension and diabetes mellitus was admitted with altered mental status and was found to be in DKA which has been treated. He was also been in atrial fibrillation with rapid ventricular response which is now controlled. The patient denies any chest pain or discomfort. There is no new TIA or CVA symptoms he denies any shortness of breath or wheezing or PND orthopnea. But is not clear as to how reliable the patient history is. Past Medical History Cardiac Medical History: Reports: Atrial Fibrillation, Hypertension. No history of prior CHF. No history of coronary artery disease or TN or anginal symptoms. There is no syncope. Endocrine Medical History: Reports: Diabetes Mellitus Type 2. 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 But from the patient slow mentation is not clear whether this is a residual effect of his prior CVA or the patient's early dementia. LUNGS: There is no history of asthma or COPD. There is no history of sleep apnea. There is no history of pulmonary embolism. Past Surgical History Past Surgical History: Reports: Cardiac Catheterization Social History Smoking Status: Never Smoker Family History Family History: Positive for hypertension negative for coronary artery disease. RESUSCITATION STATUS: The patient is full code. His sister is a surrogate healthcare decision maker. Medication/Allergy Home Medications: Acetaminophen [Tylenol Extra Strength 500 mg Tablet] 500 mg PO Q6HP PRN 10/16/19 Atorvastatin Calcium [Lipitor 20 mg Tablet] 20 mg PO DAILY 10/16/19 Digoxin [Lanoxin 0.125 mg Tablet] 0.125 mg PO DAILY 10/16/19 Empagliflozin [Jardiance] 25 mg PO DAILY 10/16/19 Melatonin [Melatonin 3 mg Tablet] 3 mg PO QPM 10/16/19 Metoprolol Tartrate [Lopressor 25 mg Tablet] 25 mg PO Q12 10/16/19 Rivaroxaban [Xarelto] 20 mg PO DAILY 10/16/19 Sertraline HCl [Zoloft] 25 mg PO DAILY 10/16/19 Sitagliptin Phos/Metformin HCl [Janumet Xr 100-1,000 mg Tablet] 1 each PO QPM 10/16/19 Allergies/Adverse Reactions: No Known Allergies Allergy (Unverified 10/16/19 10:53) Current Medications Generic Name Dose Route Start Last Admin Trade Name Freq PRN Reason Stop Dose Admin Acetaminophen 487.5 mg 10/16/19 19:25 Tylenol 325 Mg Tablet PO 11/15/19 19:24 Q6HP PRN PAIN Atorvastatin Calcium 20 mg 10/16/19 20:00 10/19/19 09:34 Lipitor 20 Mg Tablet PO 11/15/19 19:59 20 mg DAILY AIME Administration Carvedilol 25 mg 10/18/19 22:00 10/19/19 09:34 Coreg 12.5 Mg Tablet PO 11/17/19 21:59 25 mg Q12 AIME Administration Dextrose 12.5 gm 10/16/19 18:41 Dextrose Inj 50% Syringe (25 Gm/50 Ml) IV 11/15/19 18:40 PRN PRN FOR BG 50-69 IN ALERT PATIENT Protocol Dextrose 25 gm 10/16/19 18:41 Dextrose Inj 50% Syringe (25 Gm/50 Ml) IV 11/15/19 18:40 PRN PRN PER PROTOCOL Protocol Digoxin 0.125 mg 10/16/19 20:00 10/19/19 09:34 Lanoxin 0.125 Mg Tablet PO 11/15/19 19:59 0.125 mg DAILY AIME Administration Glucagon 1 mg 10/16/19 18:41 Glucagen Inj 1 Mg Vial IM 11/15/19 18:40 PRN PRN Evaluate for BG < 70 Protocol Glucose 15 gm 10/16/19 18:41 Glutose 40% Gel 15 Gm Tube PO 11/15/19 18:40 PRN PRN FOR BG 50-69 IN ALERT PATIENT Protocol Glucose 30 gm 10/16/19 18:41 Glutose 40% Gel 15 Gm Tube PO 11/15/19 18:40 PRN PRN FOR BG < 50 IN ALERT PATIENT Protocol Heparin Sodium (Porcine) 30 unit 10/19/19 06:00 10/19/19 13:28 Heparin Flush 10 Unit/Ml 5 Ml Disp.Syrg IV 11/18/19 05:59 30 unit Q8 AIME Administration Heparin Sodium (Porcine) 30 unit 10/19/19 03:30 10/19/19 13:28 Heparin Flush 10 Unit/Ml 5 Ml Disp.Syrg IV 11/18/19 03:29 30 unit .AFTER EACH USE PRN Administration AFTER EACH INTERMITTENT USE Insulin Human Lispro 0 - 12 unit 10/17/19 08:00 10/19/19 16:55 Humalog Insulin 100 Unit/1 Ml 3 Ml Vial SUBCUT 11/16/19 07:59 4 unit ACHS AIME Administration Protocol Melatonin 3 mg 10/17/19 22:00 10/18/19 21:27 Melatonin 3 Mg Tablet PO 11/16/19 21:59 3 mg QHS AIME Administration Metformin HCl 500 mg 10/17/19 08:00 10/19/19 16:55 Glucophage 500 Mg Tablet PO 11/16/19 07:59 500 mg BIDACBS AIME Administration Patient Own Medication 25 mg 10/16/19 19:00 Empagliflozin [Jardiance] PO 11/15/19 18:59 .DAILY AIME Rivaroxaban 20 mg 10/16/19 21:00 10/19/19 09:34 Xarelto 10 Mg Tablet PO 11/15/19 20:59 20 mg DAILY AIME Administration Sacubitril/Valsartan 1 tab 10/18/19 13:00 10/19/19 09:34 Entresto 24 Mg/26 Mg Tablet PO 11/17/19 12:59 1 tab Q12 AIME Administration Sertraline HCl 25 mg 10/17/19 10:00 10/19/19 09:34 Zoloft 50 Mg Tablet PO 11/16/19 09:59 25 mg DAILY AIME Administration Sitagliptin Phosphate 50 mg 10/17/19 08:00 10/19/19 16:55 Januvia 50 Mg Tablet PO 11/16/19 07:59 50 mg BIDACBS AIME Administration Discontinued Medications Generic Name Dose Route Start Last Admin Trade Name Freq PRN Reason Stop Dose Admin Dextrose 12.5 gm 10/16/19 16:51 Dextrose Inj 50% Syringe (25 Gm/50 Ml) IV 11/15/19 16:50 PRN PRN FOR BG 50-69 IN ALERT PATIENT Protocol Dextrose 25 gm 10/16/19 16:51 Dextrose Inj 50% Syringe (25 Gm/50 Ml) IV 11/15/19 16:50 PRN PRN PER PROTOCOL Protocol Diltiazem HCl 20 mg 10/16/19 10:18 10/16/19 10:58 Cardizem Inj 25 Mg/5 Ml Vial IV 10/16/19 10:19 20 mg NOW ONE Administration Diltiazem HCl 15 mg 10/16/19 12:40 10/16/19 18:17 Cardizem Inj 25 Mg/5 Ml Vial IV 10/16/19 12:41 Not Given NOW ONE Diltiazem HCl 15 mg 10/16/19 17:45 10/16/19 18:15 Cardizem Inj 25 Mg/5 Ml Vial IV 10/16/19 17:46 15 mg NOW ONE Administration Enoxaparin Sodium 40 mg 10/16/19 19:00 Lovenox Inj 40 Mg/0.4 Ml Disp.Syrin SUBCUT 11/15/19 18:59 DAILY AIME Glucagon 1 mg 10/16/19 16:51 Glucagen Inj 1 Mg Vial IM 11/15/19 16:50 PRN PRN Evaluate for BG < 70 Protocol Glucose 15 gm 10/16/19 16:51 Glutose 40% Gel 15 Gm Tube PO 11/15/19 16:50 PRN PRN FOR BG 50-69 IN ALERT PATIENT Protocol Glucose 30 gm 10/16/19 16:51 Glutose 40% Gel 15 Gm Tube PO 11/15/19 16:50 PRN PRN FOR BG < 50 IN ALERT PATIENT Protocol Diltiazem HCl 125 mg in 125 mls @ 0 mls/hr 10/16/19 10:18 10/17/19 13:51 Cardizem Rtu Inj 125 Mg-D5w 125 Ml Premix IV 11/15/19 10:17 Infused CONTINUOUS PRN Titration THIS MED IS NOT "PRN" Protocol Titrate Insulin Human Regular 100 unit 101 mls @ 0 mls/hr 10/16/19 16:51 / Sodium Chloride IV 11/15/19 16:50 CONTINUOUS PRN THIS MED IS NOT "PRN" Protocol Titrate Sodium Chloride 1,000 mls @ 0 mls/hr 10/16/19 16:54 10/16/19 18:14 Nacl 0.9% 1000 Ml Iv Soln IV 10/16/19 16:55 1,000 mls/hr BOLUS ONE Administration Wide Open Diltiazem HCl 125 mg in 125 mls @ 0 mls/hr 10/16/19 18:40 10/17/19 13:51 Cardizem Rtu Inj 125 Mg-D5w 125 Ml Premix IV 11/15/19 18:39 Infused CONTINUOUS PRN Titration THIS MED IS NOT "PRN" Protocol Titrate Insulin Human Regular 100 unit 101 mls @ 0 mls/hr 10/16/19 18:41 10/17/19 08:34 / Sodium Chloride IV 11/15/19 18:40 Infused CONTINUOUS PRN Titration THIS MED IS NOT "PRN" Protocol Titrate Sodium Chloride 1,000 mls @ 100 mls/hr 10/16/19 18:41 Nacl 0.9% 1000 Ml Iv Soln IV 11/15/19 18:40 CONTINUOUS PRN THIS MED IS NOT "PRN" Influenza Virus Vaccine Quadrival 0.5 ml 10/17/19 01:37 Flulaval Quad 2019- Vac 0.5 Ml Syr IM 10/17/19 01:38 .ONCE ONE Insulin Human Regular Confirm 10/16/19 19:12 10/17/19 12:54 Humulin R (Pyxis) Insulin 100 Unit/Ml 3ml Administered 10/16/19 19:13 Not Given Dose 1 unit .ROUTE .STK-MED ONE Lidocaine HCl Confirm 10/16/19 16:24 10/16/19 18:17 Xylocaine 1% Inj-Pf (10 Mg/Ml) 30 Ml Sdv Administered 10/16/19 16:25 Not Given Dose 30 ml .ROUTE .STK-MED ONE Lidocaine HCl 30 ml 10/16/19 18:13 10/16/19 18:20 Xylocaine 1% Inj-Pf (10 Mg/Ml) 30 Ml Sdv INFIL 10/16/19 18:14 Not Given NOW ONE Melatonin 3 mg 10/16/19 20:00 10/17/19 17:02 Melatonin 3 Mg Tablet PO 11/15/19 19:59 Not Given QPM AIME Metoprolol Tartrate 25 mg 10/16/19 22:00 10/18/19 09:33 Lopressor 25 Mg Tablet PO 11/15/19 21:59 25 mg Q12 AIME Administration Review of Systems ROS is difficult to obtain due to the patient slow mentation.: He denies any fever chills or Reiger's. Head: Denies headaches or head injury. EYES: No history of amblyopia diplopia. No history of amaurosis fugax. EARS: No severe hearing loss. No tinnitus. NOSE: No history of hayfever. No history of nosebleeds MOUTH: NO HISTORY OF ALTERED TASTE SENSATION. Throat: No history of dysphagia or odynophagia. SKIN: No history of pruritus or allergic discol oration of the skin. LUNGS: No history of cough or sputum production or wheezing. No hemoptysis. No pleuritic chest pain. CARDIAC: History of chronic atrial fibrillation. Denies syncope. Denies chest pain or discomfort. There is no shortness of breath. There is no PND orthopnea or leg edema. GI: No history of GI bleed. No history of peptic ulcer disease. No history of fatty food intolerance. No history of altered bowel movements. ENDOCRINE: History of diabetes mellitus. Patient recently was treated for DKA. There is no history of polydipsia polyuria. No history of heat or cold intolerance. RENAL: Denies history of chronic kidney disease. No symptoms or UTI. DRAWING FRAME TENDER: Patient is a slow mentation. There is no focal weaknesses. There is no seizures headaches or migraines. PSYCHIATRIC: The patient appears to be depressed. But no suicidal ideation. No aggressive behavior. No homicidal ideation. MUSCULOSKELETAL: Denies collagen vascular disease. PHYSICAL EXAMINATION: The patient is moderately obese. In no acute distress. Selected Entries 10/19/19 10/19/19 07:00 07:34 Temperature 98.0 F Heart Rate ( 96 Monitors) Respiratory 17 Rate Blood Pressure 105/73 Blood Pressure 83 Mean BP Location Right Arm BP Position Supine O2 Sat by Pulse 98 Oximetry Oxygen Delivery Room Air Method HEAD:: Is atraumatic. Normocephalic. EYES: Pupils are equal round regular reactive to light and accommodation. Extraocular movements are normal. There is no conjunctival pallor. There is no scleral icterus. EARS: Tympanic membranes are intact. External auditory canals are clear. NOSE: There is no deviated nasal septum. There is no inflammation of the nasal mucous membrane. MOUTH: Mucous memories of mouth are moist. There is no bleeding from the gums. THROAT: There is no redness of the oropharynx. There is no exudates. SKIN: There is no skin rashes. There is no particular ecchymosis. There is no skin l esions. NECK: Is supple. There is no JVD. Carotids are equal there is no bruit. There is no lymphadenopathy. There is no goiter. There is no accessory muscle respiration use. Trachea central. LUNGS: Is clear to auscultation percussion. There is no chest wall tenderness. HEART: S1-S2 is heard. There is no S3 gallop. There is no S4 gallop. S1 is of variable intensity. There is murmur of mitral regurgitation present. There is aortic sclerosis murmur without murmur of aortic stenosis or aortic regurgitation. ABDOMEN: Is soft. There is no hepatospleno megaly. Bowel sounds are well heard. EXTREMITIES: Femorals are diminished. There is no femoral bruits. There is trace pedal edema. There is no DVT or cellulitis. There is no calf tenderness. DRAWING FRAME TENDER: The patient is also slow mentation but moves all 4 extremities. PSYCHIATRIC: It is difficult to assess the patient's psychiatric status since the patient is a very slow mentation. The patient does not appear to be agitated or anxious. ECHOCARDIOGRAM: Left ventricle is mildly dilated. There is no LVH. Left ventricle ejection fraction is moderate to severely reduced at 30 to 35%. There is aortic sclerosis without stenosis. There is trace aortic regurgitation. There is moderate to moderate mitral regurgitation. There is no significant pulmonary hypertension.. ( See report] EKG: ATRIAL FIBRILLATION, V-RATE 61-139 LEFT ANTERIOR FASCICULAR BLOCK CONSIDER ANTEROSEPTAL INFARCT NONSPECIFIC T ABNORMALITIES, LATERAL LEADS BORDERLINE PROLONGED QT INTERVAL. Labs- Entire Visit 10/16/19 10/16/19 10/16/19 09:47 10:12 10:12 WBC 10.9 H RBC 4.90 Hgb 15.3 Hct 45.8 MCV 93 MCH 31.2 MCHC 33.4 RDW 13.6 Plt Count 140 L Lymph % (Auto) Not Reportable Finney % (Auto) Not Reportable Eos % (Auto) Not Reportable Baso % (Auto) Not Reportable Absolute Neuts (auto) Not Reportable Absolute Lymphs (auto) Not Reportable Absolute Monos (auto) Not Reportable Absolute Eos (auto) Not Reportable Absolute Basos (auto) Not Reportable Total Counted 100 Seg Neutrophils % Not Reportable Seg Neuts % (Manual) 77 Band Neutrophils % 2 L Lymphocytes % (Manual) 9 L Monocytes % (Manual) 12 Eosinophils % (Manual) 0 Basophils % (Manual) 0 Abs Neuts (Manual) 8.6 H Abs Lymphs (Manual) 1.0 Abs Monocytes (Manual) 1.3 Absolute Eos (Manual) 0.0 Abs Basophils (Manual) 0.0 Platelet Comment ADEQUATE RBC Morph Comment NORMO-CYTIC/CHROMIC PT INR APTT VBG pH VBG pCO2 VBG HCO3 VBG Base Excess Sodium Cancelled Potassium Cancelled Chloride Cancelled Carbon Dioxide Cancelled Anion Gap Cancelled BUN Cancelled Creatinine Cancelled Est GFR ( Amer) Cancelled Est GFR (Non-Af Amer) Cancelled Est GFR (MDRD) Non-Af Cancelled Glucose Cancelled POC Glucose 469 H* Hemoglobin A1c % Lactic Acid Calcium Cancelled Phosphorus Magnesium Total Bilirubin Cancelled Direct Bilirubin Cancelled Neonat Total Bilirubin Cancelled Neonat Direct Bilirubin Cancelled Neonat Indirect Bili Cancelled AST Cancelled ALT Cancelled Alkaline Phosphatase Cancelled Creatine Kinase Cancelled CK-MB (CK-2) Troponin I NT-Pro-B Natriuret Pep Total Protein Cancelled Albumin Cancelled Triglycerides Cholesterol LDL Cholesterol Direct VLDL Cholesterol HDL Cholesterol Lipase EGFR Cancelled TSH Free T4 Digoxin Cancelled 10/16/19 10/16/19 10/16/19 10:12 10:12 10:12 WBC RBC Hgb Hct MCV MCH MCHC RDW Plt Count Lymph % (Auto) Finney % (Auto) Eos % (Auto) Baso % (Auto) Absolute Neuts (auto) Absolute Lymphs (auto) Absolute Monos (auto) Absolute Eos (auto) Absolute Basos (auto) Total Counted Seg Neutrophils % Seg Neuts % (Manual) Band Neutrophils % Lymphocytes % (Manual) Monocytes % (Manual) Eosinophils % (Manual) Basophils % (Manual) Abs Neuts (Manual) Abs Lymphs (Manual) Abs Monocytes (Manual) Absolute Eos (Manual) Abs Basophils (Manual) Platelet Comment RBC Morph Comment PT INR APTT VBG pH VBG pCO2 VBG HCO3 VBG Base Excess Sodium Cancelled Potassium Cancelled Chloride Cancelled Carbon Dioxide Cancelled Anion Gap Cancelled BUN Cancelled Creatinine Cancelled Est GFR ( Amer) Cancelled Est GFR (Non-Af Amer) Cancelled Est GFR (MDRD) Non-Af Cancelled Glucose Cancelled POC Glucose Hemoglobin A1c % Lactic Acid Calcium Cancelled Phosphorus Magnesium Total Bilirubin Cancelled Direct Bilirubin Cancelled Neonat Total Bilirubin Cancelled Neonat Direct Bilirubin Cancelled Neonat Indirect Bili Cancelled AST Cancelled ALT Cancelled Alkaline Phosphatase Cancelled Creatine Kinase Cancelled CK-MB (CK-2) Cancelled Cancelled Troponin I Cancelled Cancelled NT-Pro-B Natriuret Pep Cancelled Cancelled Total Protein Cancelled Albumin Cancelled Triglycerides Cholesterol LDL Cholesterol Direct VLDL Cholesterol HDL Cholesterol Lipase EGFR Cancelled TSH Free T4 Digoxin Cancelled 10/16/19 10/16/19 10/16/19 11:01 14:59 14:59 WBC RBC Hgb Hct MCV MCH MCHC RDW Plt Count Lymph % (Auto) Finney % (Auto) Eos % (Auto) Baso % (Auto) Absolute Neuts (auto) Absolute Lymphs (auto) Absolute Monos (auto) Absolute Eos (auto) Absolute Basos (auto) Total Counted Seg Neutrophils % Seg Neuts % (Manual) Band Neutrophils % Lymphocytes % (Manual) Monocytes % (Manual) Eosinophils % (Manual) Basophils % (Manual) Abs Neuts (Manual) Abs Lymphs (Manual) Abs Monocytes (Manual) Absolute Eos (Manual) Abs Basophils (Manual) Platelet Comment RBC Morph Comment PT INR APTT VBG pH 7.28 L VBG pCO2 30.8 L VBG HCO3 14.3 L VBG Base Excess -10.9 Sodium 135.3 L Potassium 4.2 Chloride 99 Carbon Dioxide 10 L* Anion Gap 26 H BUN 39 H Creatinine 1.39 H Est GFR ( Amer) > 60 Est GFR (Non-Af Amer) Est GFR (MDRD) Non-Af 49 L Glucose 498 H* POC Glucose Hemoglobin A1c % Lactic Acid Calcium 9.2 Phosphorus Magnesium Total Bilirubin 1.2 Direct Bilirubin 0.5 H Neonat Total Bilirubin Not Reportable Neonat Direct Bilirubin Not Reportable Neonat Indirect Bili Not Reportable AST 22 ALT 43 Alkaline Phosphatase 85 Creatine Kinase 102 CK-MB (CK-2) 1.48 Troponin I 0.039 NT-Pro-B Natriuret Pep 3650 H Total Protein 6.8 Albumin 3.8 Triglycerides Cholesterol LDL Cholesterol Direct VLDL Cholesterol HDL Cholesterol Lipase EGFR TSH Free T4 Digoxin 1.52 10/16/19 10/16/19 10/16/19 14:59 14:59 14:59 WBC RBC Hgb Hct MCV MCH MCHC RDW Plt Count Lymph % (Auto) Finney % (Auto) Eos % (Auto) Baso % (Auto) Absolute Neuts (auto) Absolute Lymphs (auto) Absolute Monos (auto) Absolute Eos (auto) Absolute Basos (auto) Total Counted Seg Neutrophils % Seg Neuts % (Manual) Band Neutrophils % Lymphocytes % (Manual) Monocytes % (Manual) Eosinophils % (Manual) Basophils % (Manual) Abs Neuts (Manual) Abs Lymphs (Manual) Abs Monocytes (Manual) Absolute Eos (Manual) Abs Basophils (Manual) Platelet Comment RBC Morph Comment PT INR APTT VBG pH VBG pCO2 VBG HCO3 VBG Base Excess Sodium Potassium Chloride Carbon Dioxide Anion Gap BUN Creatinine Est GFR ( Amer) Est GFR (Non-Af Amer) Est GFR (MDRD) Non-Af Glucose POC Glucose Hemoglobin A1c % Lactic Acid 2.0 Calcium Phosphorus Magnesium Total Bilirubin Direct Bilirubin Neonat Total Bilirubin Neonat Direct Bilirubin Neonat Indirect Bili AST ALT Alkaline Phosphatase Creatine Kinase CK-MB (CK-2) Troponin I NT-Pro-B Natriuret Pep Total Protein Albumin Triglycerides Cholesterol LDL Cholesterol Direct VLDL Cholesterol HDL Cholesterol Lipase 279.9 EGFR TSH 0.51 Free T4 1.20 Digoxin 10/16/19 10/16/19 10/16/19 19:12 20:17 21:07 WBC RBC Hgb Hct MCV MCH MCHC RDW Plt Count Lymph % (Auto) Finney % (Auto) Eos % (Auto) Baso % (Auto) Absolute Neuts (auto) Absolute Lymphs (auto) Absolute Monos (auto) Absolute Eos (auto) Absolute Basos (auto) Total Counted Seg Neutrophils % Seg Neuts % (Manual) Band Neutrophils % Lymphocytes % (Manual) Monocytes % (Manual) Eosinophils % (Manual) Basophils % (Manual) Abs Neuts (Manual) Abs Lymphs (Manual) Abs Monocytes (Manual) Absolute Eos (Manual) Abs Basophils (Manual) Platelet Comment RBC Morph Comment PT INR APTT VBG pH VBG pCO2 VBG HCO3 VBG Base Excess Sodium Potassium Chloride Carbon Dioxide Anion Gap BUN Creatinine Est GFR ( Amer) Est GFR (Non-Af Amer) Est GFR (MDRD) Non-Af Glucose POC Glucose 417 H* 388 H 270 H Hemoglobin A1c % Lactic Acid Calcium Phosphorus Magnesium Total Bilirubin Direct Bilirubin Neonat Total Bilirubin Neonat Direct Bilirubin Neonat Indirect Bili AST ALT Alkaline Phosphatase Creatine Kinase CK-MB (CK-2) Troponin I NT-Pro-B Natriuret Pep Total Protein Albumin Triglycerides Cholesterol LDL Cholesterol Direct VLDL Cholesterol HDL Cholesterol Lipase EGFR TSH Free T4 Digoxin 10/16/19 10/16/19 10/16/19 21:15 21:15 21:15 WBC RBC Hgb Hct MCV MCH MCHC RDW Plt Count Lymph % (Auto) Finney % (Auto) Eos % (Auto) Baso % (Auto) Absolute Neuts (auto) Absolute Lymphs (auto) Absolute Monos (auto) Absolute Eos (auto) Absolute Basos (auto) Total Counted Seg Neutrophils % Seg Neuts % (Manual) Band Neutrophils % Lymphocytes % (Manual) Monocytes % (Manual) Eosinophils % (Manual) Basophils % (Manual) Abs Neuts (Manual) Abs Lymphs (Manual) Abs Monocytes (Manual) Absolute Eos (Manual) Abs Basophils (Manual) Platelet Comment RBC Morph Comment PT INR APTT VBG pH VBG pCO2 VBG HCO3 VBG Base Excess Sodium 137.9 Potassium 3.6 Chloride 103 Carbon Dioxide 14 L Anion Gap 21 H BUN 38 H Creatinine 1.33 H Est GFR ( Amer) > 60 Est GFR (Non-Af Amer) Est GFR (MDRD) Non-Af 52 L Glucose 348 H POC Glucose Hemoglobin A1c % Lactic Acid Calcium 8.9 Phosphorus Magnesium Total Bilirubin Direct Bilirubin Neonat Total Bilirubin Neonat Direct Bilirubin Neonat Indirect Bili AST ALT Alkaline Phosphatase Creatine Kinase 86 CK-MB (CK-2) Troponin I NT-Pro-B Natriuret Pep 3010 H Total Protein Albumin Triglycerides Cholesterol LDL Cholesterol Direct VLDL Cholesterol HDL Cholesterol Lipase EGFR TSH Free T4 Digoxin 10/16/19 10/16/19 10/16/19 21:15 22:20 23:18 WBC RBC Hgb Hct MCV MCH MCHC RDW Plt Count Lymph % (Auto) Finney % (Auto) Eos % (Auto) Baso % (Auto) Absolute Neuts (auto) Absolute Lymphs (auto) Absolute Monos (auto) Absolute Eos (auto) Absolute Basos (auto) Total Counted Seg Neutrophils % Seg Neuts % (Manual) Band Neutrophils % Lymphocytes % (Manual) Monocytes % (Manual) Eosinophils % (Manual) Basophils % (Manual) Abs Neuts (Manual) Abs Lymphs (Manual) Abs Monocytes (Manual) Absolute Eos (Manual) Abs Basophils (Manual) Platelet Comment RBC Morph Comment PT INR APTT VBG pH VBG pCO2 VBG HCO3 VBG Base Excess Sodium Potassium Chloride Carbon Dioxide Anion Gap BUN Creatinine Est GFR ( Amer) Est GFR (Non-Af Amer) Est GFR (MDRD) Non-Af Glucose POC Glucose 284 H 203 H Hemoglobin A1c % Lactic Acid Calcium Phosphorus Magnesium Total Bilirubin Direct Bilirubin Neonat Total Bilirubin Neonat Direct Bilirubin Neonat Indirect Bili AST ALT Alkaline Phosphatase Creatine Kinase CK-MB (CK-2) 1.40 Troponin I 0.040 NT-Pro-B Natriuret Pep Total Protein Albumin Triglycerides Cholesterol LDL Cholesterol Direct VLDL Cholesterol HDL Cholesterol Lipase EGFR TSH Free T4 Digoxin 10/17/19 10/17/19 10/17/19 00:29 01:20 02:30 WBC RBC Hgb Hct MCV MCH MCHC RDW Plt Count Lymph % (Auto) Finney % (Auto) Eos % (Auto) Baso % (Auto) Absolute Neuts (auto) Absolute Lymphs (auto) Absolute Monos (auto) Absolute Eos (auto) Absolute Basos (auto) Total Counted Seg Neutrophils % Seg Neuts % (Manual) Band Neutrophils % Lymphocytes % (Manual) Monocytes % (Manual) Eosinophils % (Manual) Basophils % (Manual) Abs Neuts (Manual) Abs Lymphs (Manual) Abs Monocytes (Manual) Absolute Eos (Manual) Abs Basophils (Manual) Platelet Comment RBC Morph Comment PT INR APTT VBG pH VBG pCO2 VBG HCO3 VBG Base Excess Sodium 138.6 Potassium 3.2 L Chloride 104 Carbon Dioxide 23 Anion Gap 12 BUN 38 H Creatinine 1.25 Est GFR ( Amer) > 60 Est GFR (Non-Af Amer) Est GFR (MDRD) Non-Af 56 L Glucose 117 H POC Glucose 113 H 71 Hemoglobin A1c % Lactic Acid Calcium 8.8 Phosphorus Magnesium Total Bilirubin Direct Bilirubin Neonat Total Bilirubin Neonat Direct Bilirubin Neonat Indirect Bili AST ALT Alkaline Phosphatase Creatine Kinase CK-MB (CK-2) Troponin I NT-Pro-B Natriuret Pep Total Protein Albumin Triglycerides Cholesterol LDL Cholesterol Direct VLDL Cholesterol HDL Cholesterol Lipase EGFR TSH Free T4 Digoxin 10/17/19 10/17/19 10/17/19 02:39 05:09 05:40 WBC RBC Hgb Hct MCV MCH MCHC RDW Plt Count Lymph % (Auto) Finney % (Auto) Eos % (Auto) Baso % (Auto) Absolute Neuts (auto) Absolute Lymphs (auto) Absolute Monos (auto) Absolute Eos (auto) Absolute Basos (auto) Total Counted Seg Neutrophils % Seg Neuts % (Manual) Band Neutrophils % Lymphocytes % (Manual) Monocytes % (Manual) Eosinophils % (Manual) Basophils % (Manual) Abs Neuts (Manual) Abs Lymphs (Manual) Abs Monocytes (Manual) Absolute Eos (Manual) Abs Basophils (Manual) Platelet Comment RBC Morph Comment PT INR APTT VBG pH VBG pCO2 VBG HCO3 VBG Base Excess Sodium Potassium Chloride Carbon Dioxide Anion Gap BUN Creatinine Est GFR ( Amer) Est GFR (Non-Af Amer) Est GFR (MDRD) Non-Af Glucose POC Glucose 120 H 231 H Hemoglobin A1c % Lactic Acid Calcium Phosphorus Magnesium Total Bilirubin Direct Bilirubin Neonat Total Bilirubin Neonat Direct Bilirubin Neonat Indirect Bili AST ALT Alkaline Phosphatase Creatine Kinase 67 CK-MB (CK-2) Troponin I NT-Pro-B Natriuret Pep Total Protein Albumin Triglycerides Cholesterol LDL Cholesterol Direct VLDL Cholesterol HDL Cholesterol Lipase EGFR TSH Free T4 Digoxin 10/17/19 10/17/19 10/17/19 05:40 05:40 05:40 WBC 11.9 H RBC 4.69 Hgb 14.4 Hct 43.6 MCV 93 MCH 30.8 MCHC 33.1 RDW 13.7 Plt Count 135 L Lymph % (Auto) Not Reportable Finney % (Auto) Not Reportable Eos % (Auto) Not Reportable Baso % (Auto) Not Reportable Absolute Neuts (auto) Not Reportable Absolute Lymphs (auto) Not Reportable Absolute Monos (auto) Not Reportable Absolute Eos (auto) Not Reportable Absolute Basos (auto) Not Reportable Total Counted 100 Seg Neutrophils % Not Reportable Seg Neuts % (Manual) 83 H Band Neutrophils % Lymphocytes % (Manual) 7 L Monocytes % (Manual) 10 Eosinophils % (Manual) 0 Basophils % (Manual) 0 Abs Neuts (Manual) 9.9 H Abs Lymphs (Manual) 0.8 Abs Monocytes (Manual) 1.2 Absolute Eos (Manual) 0.0 Abs Basophils (Manual) 0.0 Platelet Comment DECREASED RBC Morph Comment NORMO-CYTIC/CHROMIC PT 23.5 H INR 2.06 APTT 37.0 H VBG pH VBG pCO2 VBG HCO3 VBG Base Excess Sodium Potassium Chloride Carbon Dioxide Anion Gap BUN Creatinine Est GFR ( Amer) Est GFR (Non-Af Amer) Est GFR (MDRD) Non-Af Glucose POC Glucose Hemoglobin A1c % Lactic Acid Calcium Phosphorus Magnesium Total Bilirubin Direct Bilirubin Neonat Total Bilirubin Neonat Direct Bilirubin Neonat Indirect Bili AST ALT Alkaline Phosphatase Creatine Kinase CK-MB (CK-2) 1.49 Troponin I 0.039 NT-Pro-B Natriuret Pep Total Protein Albumin Triglycerides Cholesterol LDL Cholesterol Direct VLDL Cholesterol HDL Cholesterol Lipase EGFR TSH Free T4 Digoxin 10/17/19 10/17/19 10/17/19 05:40 05:40 07:36 WBC RBC Hgb Hct MCV MCH MCHC RDW Plt Count Lymph % (Auto) Fin[place] % (Auto) Eos % (Auto) Baso % (Auto) Absolute Neuts (auto) Absolute Lymphs (auto) Absolute Monos (auto) Absolute Eos (auto) Absolute Basos (auto) Total Counted Seg Neutrophils % Seg Neuts % (Manual) Band Neutrophils % Lymphocytes % (Manual) Monocytes % (Manual) Eosinophils % (Manual) Basophils % (Manual) Abs Neuts (Manual) Abs Lymphs (Manual) Abs Monocytes (Manual) Absolute Eos (Manual) Abs Basophils (Manual) Platelet Comment RBC Morph Comment PT INR APTT VBG pH VBG pCO2 VBG HCO3 VBG Base Excess Sodium 139.5 Potassium 3.7 Chloride 105 Carbon Dioxide 17 L Anion Gap 18 BUN 38 H Creatinine 1.32 H Est GFR ( Amer) > 60 Est GFR (Non-Af Amer) Est GFR (MDRD) Non-Af 52 L Glucose 235 H POC Glucose 249 H Hemoglobin A1c % 14.0 H Lactic Acid Calcium 8.9 Phosphorus 4.3 Magnesium 2.3 Total Bilirubin 1.2 Direct Bilirubin 0.5 H Neonat Total Bilirubin Not Reportable Neonat Direct Bilirubin Not Reportable Neonat Indirect Bili Not Reportable AST 20 ALT 32 Alkaline Phosphatase 76 Creatine Kinase CK-MB (CK-2) Troponin I NT-Pro-B Natriuret Pep Total Protein 5.9 L Albumin 3.3 L Triglycerides 122 Cholesterol 222.57 H LDL Cholesterol Direct 185 H VLDL Cholesterol 24.0 HDL Cholesterol 34 L Lipase EGFR TSH Free T4 Digoxin 10/17/19 10/17/19 10/17/19 11:27 11:40 11:40 WBC RBC Hgb Hct MCV MCH MCHC RDW Plt Count Lymph % (Auto) Fin[place] % (Auto) Eos % (Auto) Baso % (Auto) Absolute Neuts (auto) Absolute Lymphs (auto) Absolute Monos (auto) Absolute Eos (auto) Absolute Basos (auto) Total Counted Seg Neutrophils % Seg Neuts % (Manual) Band Neutrophils % Lymphocytes % (Manual) Monocytes % (Manual) Eosinophils % (Manual) Basophils % (Manual) Abs Neuts (Manual) Abs Lymphs (Manual) Abs Monocytes (Manual) Absolute Eos (Manual) Abs Basophils (Manual) Platelet Comment RBC Morph Comment PT INR APTT VBG pH VBG pCO2 VBG HCO3 VBG Base Excess Sodium 133.6 L Potassium 3.6 Chloride 100 Carbon Dioxide 19 L Anion Gap 15 BUN 41 H Creatinine 1.31 H Est GFR ( Amer) > 60 Est GFR (Non-Af Amer) Est GFR (MDRD) Non-Af 53 L Glucose 295 H POC Glucose 280 H Hemoglobin A1c % Lactic Acid Calcium 8.5 Phosphorus Magnesium Total Bilirubin Direct Bilirubin Neonat Total Bilirubin Neonat Direct Bilirubin Neonat Indirect Bili AST ALT Alkaline Phosphatase Creatine Kinase 54 L CK-MB (CK-2) 1.22 Troponin I 0.024 NT-Pro-B Natriuret Pep Total Protein Albumin Triglycerides Cholesterol LDL Cholesterol Direct VLDL Cholesterol HDL Cholesterol Lipase EGFR TSH Free T4 Digoxin 10/17/19 10/17/19 10/18/19 15:51 21:00 04:47 WBC 10.5 RBC 4.67 Hgb 14.6 Hct 43.2 MCV 93 MCH 31.2 MCHC 33.7 RDW 13.9 Plt Count 118 L Lymph % (Auto) Not Reportable Fin[place] % (Auto) Not Reportable Eos % (Auto) Not Reportable Baso % (Auto) Not Reportable Absolute Neuts (auto) Not Reportable Absolute Lymphs (auto) Not Reportable Absolute Monos (auto) Not Reportable Absolute Eos (auto) Not Reportable Absolute Basos (auto) Not Reportable Total Counted 100 Seg Neutrophils % Not Reportable Seg Neuts % (Manual) 74 Band Neutrophils % 2 L Lymphocytes % (Manual) 12 L Monocytes % (Manual) 11 Eosinophils % (Manual) 1 Basophils % (Manual) 0 Abs Neuts (Manual) 8.0 Abs Lymphs (Manual) 1.3 Abs Monocytes (Manual) 1.2 Absolute Eos (Manual) 0.1 Abs Basophils (Manual) 0.0 Platelet Comment DECREASED RBC Morph Comment NORMO-CYTIC/CHROMIC PT INR APTT VBG pH VBG pCO2 VBG HCO3 VBG Base Excess Sodium Potassium Chloride Carbon Dioxide Anion Gap BUN Creatinine Est GFR ( Amer) Est GFR (Non-Af Amer) Est GFR (MDRD) Non-Af Glucose POC Glucose 204 H 227 H Hemoglobin A1c % Lactic Acid Calcium Phosphorus Magnesium Total Bilirubin Direct Bilirubin Neonat Total Bilirubin Neonat Direct Bilirubin Neonat Indirect Bili AST ALT Alkaline Phosphatase Creatine Kinase CK-MB (CK-2) Troponin I NT-Pro-B Natriuret Pep Total Protein Albumin Triglycerides Cholesterol LDL Cholesterol Direct VLDL Cholesterol HDL Cholesterol Lipase EGFR TSH Free T4 Digoxin 10/18/19 10/18/19 10/18/19 04:47 04:47 07:31 WBC RBC Hgb Hct MCV MCH MCHC RDW Plt Count Lymph % (Auto) [place] % (Auto) Eos % (Auto) Baso % (Auto) Absolute Neuts (auto) Absolute Lymphs (auto) Absolute Monos (auto) Absolute Eos (auto) Absolute Basos (auto) Total Counted Seg Neutrophils % Seg Neuts % (Manual) Band Neutrophils % Lymphocytes % (Manual) Monocytes % (Manual) Eosinophils % (Manual) Basophils % (Manual) Abs Neuts (Manual) Abs Lymphs (Manual) Abs Monocytes (Manual) Absolute Eos (Manual) Abs Basophils (Manual) Platelet Comment RBC Morph Comment PT 21.6 H INR 1.85 APTT 39.6 H VBG pH VBG pCO2 VBG HCO3 VBG Base Excess Sodium Potassium Chloride Carbon Dioxide Anion Gap BUN Creatinine Est GFR ( Amer) Est GFR (Non-Af Amer) Est GFR (MDRD) Non-Af Glucose POC Glucose 264 H Hemoglobin A1c % Lactic Acid Calcium Phosphorus 3.8 Magnesium 2.0 Total Bilirubin 0.9 Direct Bilirubin 0.2 Neonat Total Bilirubin Not Reportable Neonat Direct Bilirubin Not Reportable Neonat Indirect Bili Not Reportable AST 18 ALT 24 Alkaline Phosphatase 68 Creatine Kinase CK-MB (CK-2) Troponin I NT-Pro-B Natriuret Pep Total Protein 5.4 L Albumin 3.0 L Triglycerides Cholesterol LDL Cholesterol Direct VLDL Cholesterol HDL Cholesterol Lipase EGFR TSH Free T4 Digoxin 10/18/19 10/18/19 10/18/19 11:36 16:39 21:29 WBC RBC Hgb Hct MCV MCH MCHC RDW Plt Count Lymph % (Auto) [place] % (Auto) Eos % (Auto) Baso % (Auto) Absolute Neuts (auto) Absolute Lymphs (auto) Absolute Monos (auto) Absolute Eos (auto) Absolute Basos (auto) Total Counted Seg Neutrophils % Seg Neuts % (Manual) Band Neutrophils % Lymphocytes % (Manual) Monocytes % (Manual) Eosinophils % (Manual) Basophils % (Manual) Abs Neuts (Manual) Abs Lymphs (Manual) Abs Monocytes (Manual) Absolute Eos (Manual) Abs Basophils (Manual) Platelet Comment RBC Morph Comment PT INR APTT VBG pH VBG pCO2 VBG HCO3 VBG Base Excess Sodium Potassium Chloride Carbon Dioxide Anion Gap BUN Creatinine Est GFR ( Amer) Est GFR (Non-Af Amer) Est GFR (MDRD) Non-Af Glucose POC Glucose 234 H 223 H 286 H Hemoglobin A1c % Lactic Acid Calcium Phosphorus Magnesium Total Bilirubin Direct Bilirubin Neonat Total Bilirubin Neonat Direct Bilirubin Neonat Indirect Bili AST ALT Alkaline Phosphatase Creatine Kinase CK-MB (CK-2) Troponin I NT-Pro-B Natriuret Pep Total Protein Albumin Triglycerides Cholesterol LDL Cholesterol Direct VLDL Cholesterol HDL Cholesterol Lipase EGFR TSH Free T4 Digoxin 10/19/19 10/19/19 10/19/19 05:18 05:18 05:18 WBC 7.7 RBC 4.49 Hgb 14.0 Hct 41.3 MCV 92 MCH 31.2 MCHC 33.9 RDW 13.7 Plt Count 113 L Lymph % (Auto) 5.8 L [place]ney % (Auto) 10.0 Eos % (Auto) 0.4 Baso % (Auto) 0.1 Absolute Neuts (auto) 6.5 Absolute Lymphs (auto) 0.4 L Absolute Monos (auto) 0.8 Absolute Eos (auto) 0.0 Absolute Basos (auto) 0.0 Total Counted Seg Neutrophils % 83.7 H Seg Neuts % (Manual) Band Neutrophils % Lymphocytes % (Manual) Monocytes % (Manual) Eosinophils % (Manual) Basophils % (Manual) Abs Neuts (Manual) Abs Lymphs (Manual) Abs Monocytes (Manual) Absolute Eos (Manual) Abs Basophils (Manual) Platelet Comment RBC Morph Comment PT 20.8 H INR 1.77 APTT 35.2 VBG pH VBG pCO2 VBG HCO3 VBG Base Excess Sodium Potassium Chloride Carbon Dioxide Anion Gap BUN Creatinine Est GFR ( Amer) Est GFR (Non-Af Amer) Est GFR (MDRD) Non-Af Glucose POC Glucose Hemoglobin A1c % Lactic Acid Calcium Phosphorus 3.9 Magnesium 2.0 Total Bilirubin 0.8 Direct Bilirubin 0.2 Neonat Total Bilirubin Not Reportable Neonat Direct Bilirubin Not Reportable Neonat Indirect Bili Not Reportable AST 14 L ALT 17 Alkaline Phosphatase 61 Creatine Kinase CK-MB (CK-2) Troponin I NT-Pro-B Natriuret Pep Total Protein 4.8 L Albumin 2.6 L Triglycerides Cholesterol LDL Cholesterol Direct VLDL Cholesterol HDL Cholesterol Lipase EGFR TSH Free T4 Digoxin 10/19/19 10/19/19 10/19/19 08:10 12:21 16:02 WBC RBC Hgb Hct MCV MCH MCHC RDW Plt Count Lymph % (Auto) [place] % (Auto) Eos % (Auto) Baso % (Auto) Absolute Neuts (auto) Absolute Lymphs (auto) Absolute Monos (auto) Absolute Eos (auto) Absolute Basos (auto) Total Counted Seg Neutrophils % Seg Neuts % (Manual) Band Neutrophils % Lymphocytes % (Manual) Monocytes % (Manual) Eosinophils % (Manual) Basophils % (Manual) Abs Neuts (Manual) Abs Lymphs (Manual) Abs Monocytes (Manual) Absolute Eos (Manual) Abs Basophils (Manual) Platelet Comment RBC Morph Comment PT INR APTT VBG pH VBG pCO2 VBG HCO3 VBG Base Excess Sodium Potassium Chloride Carbon Dioxide Anion Gap BUN Creatinine Est GFR ( Amer) Est GFR (Non-Af Amer) Est GFR (MDRD) Non-Af Glucose POC Glucose 299 H 225 H 233 H Hemoglobin A1c % Lactic Acid Calcium Phosphorus Magnesium Total Bilirubin Direct Bilirubin Neonat Total Bilirubin Neonat Direct Bilirubin Neonat Indirect Bili AST ALT Alkaline Phosphatase Creatine Kinase CK-MB (CK-2) Troponin I NT-Pro-B Natriuret Pep Total Protein Albumin Triglycerides Cholesterol LDL Cholesterol Direct VLDL Cholesterol HDL Cholesterol Lipase EGFR TSH Free T4 Digoxin Chest X-Ray 10/16/19 10:17 IMPRESSION: Borderline cardiomegaly without a superimposed acute cardiopulmonary process. Chest X-Ray 10/16/19 16:45 IMPRESSION: Right jugular central line tip superior vena cava, no pneumothorax. Mild cardiomegaly IMPRESSION/RECOMMENDATION: 1. 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 Once the patient's current heart failure is well controlled would recommend getting an IV Lexiscan Cardiolite stress test to assess if the patient has underlying coronary artery disease of significance. This can be done as an outpatient. Continue beta- anne and digoxin. Note that the patient has been started on Entresto. After a week or so would increase the dosage of Entresto. 2. Atrial fibrillation: Continue beta-blockers and digoxin. Continue Xarelto. 3. Diabetes mellitus status post treatment for DKA: Continue antidiabetic medication. 4. Hypertension: Blood pressure seems to be well controlled. 5. Prior history of CVA: 6. Return to see patient's corrected [place] score is 5. Strongly recommend continue Xarelto. Echo findings discussed with the patient. Medical decision making is of high complexity. 60 minutes spent on this patient with more than 50% of time spent in direct patient care. Discussed with Dr. Crawford. Will follow.
--- NOTE | 2019-10-19 20:55 | PDOC PROGRESS REPORT ---
Subjective Progress Note for:: 10/19/19 Subjective:: Patient seen by the bedside, he was seen today by Dr. More, cardiology Reason For Visit: DIABETIC KETOACIDOSIS DEHYDRATION ATRIAL Physical Exam Vital Signs: Temp Pulse Resp BP Pulse Ox 97.6 F 101 H 18 117/84 97 10/19/19 15:36 10/19/19 19:00 10/19/19 15:36 10/19/19 15:36 10/19/19 15:36 Intake & Output 10/18/19 10/19/19 10/20/19 06:59 06:59 06:59 Intake Total 817 820 600 Output Total 200 Balance 617 820 600 Weight 102.7 kg 102.7 kg General appearance: PRESENT: no acute distress Eye exam: PRESENT: PERRLA Respiratory exam: PRESENT: clear to auscultation kamla Cardiovascular exam: PRESENT: +S1, +S2 GI/Abdominal exam: PRESENT: soft Results Laboratory Results: 10/19/19 05:18 10/17/19 11:40 10/19/19 10/19/19 05:18 05:18 WBC 7.7 RBC 4.49 Hgb 14.0 Hct 41.3 MCV 92 MCH 31.2 MCHC 33.9 RDW 13.7 Plt Count 113 L Seg Neutrophils % 83.7 H Phosphorus 3.9 Magnesium 2.0 Total Bilirubin 0.8 AST 14 L Alkaline Phosphatase 61 Total Protein 4.8 L Albumin 2.6 L 10/16/19 10/16/19 10/16/19 10:12 10:12 10:12 Creatine Kinase Cancelled Cancelled CK-MB (CK-2) Cancelled Troponin I Cancelled NT-Pro-B Natriuret Pep Cancelled 10/16/19 10/16/19 10/16/19 10:12 14:59 14:59 Creatine Kinase 102 CK-MB (CK-2) Cancelled 1.48 Troponin I Cancelled 0.039 NT-Pro-B Natriuret Pep Cancelled 3650 H 10/16/19 10/16/19 10/16/19 21:15 21:15 21:15 Creatine Kinase 86 CK-MB (CK-2) 1.40 Troponin I 0.040 NT-Pro-B Natriuret Pep 3010 H 10/17/19 10/17/19 10/17/19 05:40 05:40 11:40 Creatine Kinase 67 CK-MB (CK-2) 1.49 1.22 Troponin I 0.039 0.024 NT-Pro-B Natriuret Pep 10/17/19 11:40 Creatine Kinase 54 L CK-MB (CK-2) Troponin I NT-Pro-B Natriuret Pep Impressions: Chest X-Ray 10/16/19 16:45 IMPRESSION: Right jugular central line tip superior vena cava, no pneumothorax. Mild cardiomegaly Assessment & Plan - Diagnosis (1) Diabetic ketoacidosis Qualifiers: Diabetes mellitus type: type 2 Diabetes mellitus complication detail: without coma Qualified Code(s): E11.10 - Type 2 diabetes mellitus with ketoacidosis without coma Is this a current diagnosis for this admission?: Yes Plan: Resolved (2) Atrial fibrillation with rapid ventricular response Is this a current diagnosis for this admission?: Yes Plan: Rate controlled (3) Acute systolic heart failure Is this a current diagnosis for this admission?: Yes - Time Time Spent with patient: 35 or more minutes Level of Care: IMCU
[2019-10-19] MEDS: MELATONIN 3 MG TABLET PO SCH (22:03)
[2019-10-20] MEDS: SACUBITRIL/VALSARTAN 24 MG/26 MG TABLET PO SCH ×3 (02:39→21:28)
[2019-10-20] MEDS: METFORMIN HCL 500 MG TABLET PO SCH ×2 (09:09→17:06)
[2019-10-20] MEDS: SITAGLIPTIN PHOSPHATE 50 MG TABLET PO SCH ×2 (09:09→17:07)
[2019-10-20] MEDS: INSULIN LISPRO 100 UNIT/ML 3 ML VIAL SUBCUT SCH ×4 (09:10→21:47)
[2019-10-20] MEDS: CARVEDILOL 12.5 MG TABLET PO SCH ×2 (09:10→21:48)
[2019-10-20] MEDS: DIGOXIN 0.125 MG TABLET PO SCH (09:10)
[2019-10-20] MEDS: RIVAROXABAN 10 MG TABLET PO SCH (09:10)
[2019-10-20] MEDS: SERTRALINE HCL 50 MG TABLET PO SCH (09:10)
[2019-10-20] MEDS: ATORVASTATIN CALCIUM 20 MG TABLET PO SCH (09:10)
--- NOTE | 2019-10-20 19:23 | Progress Note ---
Provider Note Provider Note: CARDIOLOGY PROGRESS NOTE by Dr. Remedios More on 10/20/2019. OBJECTIVE: The patient denies any chest pain or discomfort. He denies any shortness of breath. There is no PND orthopnea or leg edema. There is no ventricular arrhythmia seen on the monitor. There is no recurrence of the TIA CVA this admission. Patient continues to be in atrial fibrillation with controlled ventricular response. T Physical EXAM examination: The patient is moderately obese. In no acute distress. Selected Entries 10/20/19 07:59 Temperature 97.9 F Temperature Oral Source Pulse Rate 81 Respiratory 18 Rate Blood Pressure 130/71 H Blood Pressure 90 Mean BP Location Right Arm BP Position Supine O2 Sat by Pulse 98 Oximetry Oxygen Delivery Room Air Method HEAD:: Is atraumatic. Normocephalic. EYES: Pupils are equal round regular reactive to light and accommodation. Extraocular movements are normal. There is no conjunctival pallor. There is no scleral icterus. EARS: Tympanic membranes are intact. External auditory canals are clear. NOSE: There is no deviated nasal septum. There is no inflammation of the nasal mucous membrane. MOUTH: Mucous memories of mouth are moist. There is no bleeding from the gums. THROAT: There is no redness of the oropharynx. There is no exudates. SKIN: There is no skin rashes. There is no particular ecchymosis. There is no skin lesions. NECK: Is supple. There is no JVD. Carotids are equal there is no bruit. There is no lymphadenopathy. There is no goiter. There is no accessory muscle respiration use. Trachea central. LUNGS: Is clear to auscultation percussion. There is no chest wall tenderness. HEART: S1-S2 is heard. There is no S3 gallop. There is no S4 gallop. S1 is of variable intensity. There is murmur of mitral regurgitation present. There is aortic sclerosis murmur without murmur of aortic stenosis or aortic regurgitation. ABDOMEN: Is soft. There is no hepatospleno megaly. Bowel sounds are well heard. EXTREMITIES: Femorals are diminished. There is no femoral bruits. There is trace pedal edema. There is no DVT or cellulitis. There is no calf tenderness. WEB MERCHANDISER: The patient is also slow mentation but moves all 4 extremities. PSYCHIATRIC: It is difficult to assess the patient's psychiatric status since the patient is a very slow mentation. The patient does not appear to be agitated or anxious. Labs- All tests 24 hr 10/19/19 10/19/19 10/20/19 21:32 22:31 07:59 POC Glucose 216 H 206 H Stool Occult Blood POSITIVE 10/20/19 10/20/19 11:53 16:06 POC Glucose 201 H 207 H Stool Occult Blood Chest X-Ray 10/16/19 10:17 IMPRESSION: Borderline cardiomegaly without a superimposed acute cardiopulmonary process. Chest X-Ray 10/16/19 16:45 IMPRESSION: Right jugular central line tip superior vena cava, no pneumothorax. Mild cardiomegaly IMPRESSION/RECOMMENDATION: 1. CARDIOMYOPATHY: Most likely dilated cardiomyopathy, but need to make sure th at the patient has no underlying coronary artery disease. Once the patient's current heart failure is well controlled would recommend getting an IV Lexiscan Cardiolite stress test to assess if the patient has underlying coronary artery disease of significance. This can be done as an outpatient. Continue beta- anne and digoxin. Note that the patient has been started on Entresto. After a week or so would increase the dosage of Entresto. 2. Atrial fibrillation: Continue beta-blockers and digoxin. Continue Xarelto. 3. Diabetes mellitus status post treatment for DKA: Continue antidiabetic medication. 4. Hypertension: Blood pressure seems to be well controlled. 5. Prior history of CVA: Medications reviewed. Medical regimen and management plan discussed with Dr. Crawford. Medical decision making is of moderate complexity. 40 minutes spent on this patient with more than 50% of time spent in direct patient care. Will follow
--- NOTE | 2019-10-20 21:20 | PDOC PROGRESS REPORT ---
Subjective Progress Note for:: 10/20/19 Subjective:: Patient seen by the bedside, seen by Dr. More, cardiology, [facility] Reason For Visit: DIABETIC KETOACIDOSIS DEHYDRATION ATRIAL Physical Exam Vital Signs: Temp Pulse Resp BP Pulse Ox 97.8 F 103 H 20 90/66 L 96 10/20/19 20:27 10/20/19 20:27 10/20/19 20:27 10/20/19 20:27 10/20/19 20:27 Intake & Output 10/19/19 10/20/19 10/21/19 06:59 06:59 06:59 Intake Total 820 822 440 Output Total 0 0 Balance 820 822 440 Weight 102.7 kg 104.4 kg General appearance: PRESENT: no acute distress Head exam: PRESENT: atraumatic, normocephalic Eye exam: PRESENT: PERRLA. ABSENT: scleral icterus Mouth exam: PRESENT: moist, tongue midline Neck exam: PRESENT: full ROM Respiratory exam: PRESENT: clear to auscultation kamla Cardiovascular exam: PRESENT: RRR, +S1, +S2 Pulses: PRESENT: normal dorsalis pedis pul, +2 pedal pulses bilateral Vascular exam: PRESENT: normal capillary refill GI/Abdominal exam: PRESENT: normal bowel sounds, soft Rectal exam: PRESENT: deferred Neurological exam: PRESENT: alert, CN II-XII grossly intact Psychiatric exam: PRESENT: appropriate affect, normal mood Skin exam: PRESENT: dry, intact, warm. ABSENT: cyanosis, rash Results Laboratory Results: 10/19/19 05:18 10/17/19 11:40 10/19/19 22:31 Stool Occult Blood POSITIVE 10/16/19 10/16/19 10/16/19 10:12 10:12 10:12 Creatine Kinase Cancelled Cancelled CK-MB (CK-2) Cancelled Troponin I Cancelled NT-Pro-B Natriuret Pep Cancelled 10/16/19 10/16/19 10/16/19 10:12 14:59 14:59 Creatine Kinase 102 CK-MB (CK-2) Cancelled 1.48 Troponin I Cancelled 0.039 NT-Pro-B Natriuret Pep Cancelled 3650 H 10/16/19 10/16/19 10/16/19 21:15 21:15 21:15 Creatine Kinase 86 CK-MB (CK-2) 1.40 Troponin I 0.040 NT-Pro-B Natriuret Pep 3010 H 10/17/19 10/17/19 10/17/19 05:40 05:40 11:40 Creatine Kinase 67 CK-MB (CK-2) 1.49 1.22 Troponin I 0.039 0.024 NT-Pro-B Natriuret Pep 10/17/19 11:40 Creatine Kinase 54 L CK-MB (CK-2) Troponin I NT-Pro-B Natriuret Pep Impressions: Chest X-Ray 10/16/19 16:45 IMPRESSION: Right jugular central line tip superior vena cava, no pneumothorax. Mild cardiomegaly Assessment & Plan - Diagnosis (1) Diabetic ketoacidosis Qualifiers: Diabetes mellitus type: type 2 Diabetes mellitus complication detail: without coma Qualified Code(s): E11.10 - Type 2 diabetes mellitus with ketoacidosis without coma Is this a current diagnosis for this admission?: Yes Plan: Resolved (2) Atrial fibrillation with rapid ventricular response Is this a current diagnosis for this admission?: Yes Plan: Rate controlled (3) Acute systolic heart failure Is this a current diagnosis for this admission?: Yes - Time Time Spent with patient: 35 or more minutes Level of Care: IMCU Medications reviewed and adjusted accordingly: Yes
[2019-10-20] MEDS: MELATONIN 3 MG TABLET PO SCH (21:48)
[2019-10-21] MEDS: SITAGLIPTIN PHOSPHATE 50 MG TABLET PO SCH ×3 (09:06→17:38)
[2019-10-21] MEDS: METFORMIN HCL 500 MG TABLET PO SCH ×2 (09:06→17:36)
[2019-10-21] MEDS: INSULIN LISPRO 100 UNIT/ML 3 ML VIAL SUBCUT SCH ×4 (09:06→22:11)
[2019-10-21] MEDS: RIVAROXABAN 10 MG TABLET PO SCH (09:06)
[2019-10-21] MEDS: SERTRALINE HCL 50 MG TABLET PO SCH (09:07)
[2019-10-21] MEDS: ATORVASTATIN CALCIUM 20 MG TABLET PO SCH (09:07)
[2019-10-21] MEDS: DIGOXIN 0.125 MG TABLET PO SCH (09:09)
[2019-10-21] MEDS: CARVEDILOL 12.5 MG TABLET PO SCH ×2 (09:09→22:12)
[2019-10-21] MEDS: SACUBITRIL/VALSARTAN 24 MG/26 MG TABLET PO SCH ×2 (09:09→22:13)
--- NOTE | 2019-10-21 17:22 | PDOC PROGRESS REPORT ---
Subjective Progress Note for:: 10/21/19 Subjective:: Patient seen by the bedside the blood sugar is not well controlled, Jardiance is nonformulary in the hospital Reason For Visit: DIABETIC KETOACIDOSIS DEHYDRATION ATRIAL Physical Exam Vital Signs: Temp Pulse Resp BP Pulse Ox 98.1 F 78 17 96/44 L 98 10/21/19 16:00 10/21/19 16:00 10/21/19 16:00 10/21/19 16:00 10/21/19 16:00 Intake & Output 10/20/19 10/21/19 10/22/19 06:59 06:59 06:59 Intake Total 822 760 800 Output Total 0 0 Balance 822 760 800 Weight 104.4 kg 104.6 kg 104.6 kg General appearance: PRESENT: no acute distress Eye exam: PRESENT: PERRLA Respiratory exam: PRESENT: clear to auscultation kamla Cardiovascular exam: PRESENT: +S1, +S2 GI/Abdominal exam: PRESENT: soft Neurological exam: PRESENT: alert Results Laboratory Results: 10/19/19 05:18 10/17/19 11:40 10/16/19 10/16/19 10/16/19 10:12 10:12 10:12 Creatine Kinase Cancelled Cancelled CK-MB (CK-2) Cancelled Troponin I Cancelled NT-Pro-B Natriuret Pep Cancelled 10/16/19 10/16/19 10/16/19 10:12 14:59 14:59 Creatine Kinase 102 CK-MB (CK-2) Cancelled 1.48 Troponin I Cancelled 0.039 NT-Pro-B Natriuret Pep Cancelled 3650 H 10/16/19 10/16/19 10/16/19 21:15 21:15 21:15 Creatine Kinase 86 CK-MB (CK-2) 1.40 Troponin I 0.040 NT-Pro-B Natriuret Pep 3010 H 10/17/19 10/17/19 10/17/19 05:40 05:40 11:40 Creatine Kinase 67 CK-MB (CK-2) 1.49 1.22 Troponin I 0.039 0.024 NT-Pro-B Natriuret Pep 10/17/19 11:40 Creatine Kinase 54 L CK-MB (CK-2) Troponin I NT-Pro-B Natriuret Pep Impressions: Chest X-Ray 10/16/19 16:45 IMPRESSION: Right jugular central line tip superior vena cava, no pneumothorax. Mild cardiomegaly Assessment & Plan - Diagnosis (1) Diabetic ketoacidosis Qualifiers: Diabetes mellitus type: type 2 Diabetes mellitus complication detail: without coma Qualified Code(s): E11.10 - Type 2 diabetes mellitus with ketoacidosis without coma Is this a current diagnosis for this admission?: Yes Plan: Adjust medication for diabetes (2) Atrial fibrillation with rapid ventricular response Is this a current diagnosis for this admission?: Yes (3) Acute systolic heart failure Is this a current diagnosis for this admission?: Yes Plan: Continue present treatment - Time Time Spent with patient: Less than 15 minutes Level of Care: ICU
[2019-10-21 18:44] LABS: ALBUMIN 2.6 g/dL (3.5-5.0); ALKALINE PHOSPHATASE 55 U/L (38-126); ANION GAP 8 (5-19); ASPARTATE AMINO TRANSFERASE 23 U/L (17-59); BILIRUBIN,DIRECT 0.1 mg/dL (0.0-0.4); BILIRUBIN,TOTAL 0.5 mg/dL (0.2-1.3); BLOOD UREA NITROGEN 40 mg/dL (7-20); CALCIUM 8.3 mg/dL (8.4-10.2); CARBON DIOXIDE 25 mmol/L (22-30); CHLORIDE 101 mmol/L (98-107); GLUCOSE 181 mg/dL (75-110); POTASSIUM 3.8 mmol/L (3.6-5.0); TOTAL PROTEIN 5.1 g/dL (6.3-8.2)
[2019-10-21] MEDS: MELATONIN 3 MG TABLET PO SCH (22:12)
--- NOTE | 2019-10-21 22:33 | Progress Note ---
Provider Note Provider Note: CARDIOLOGY PROGRESS NOTE by Dr. Remedios More on 09/20/2019. SUBJECTIVE: The patient continues to be in atrial fibrillation. He denies any chest pain or discomfort. There is no shortness of breath or PND orthopnea. There is no bleeding on current anticoagulation. There is no TIA CVA symptoms. At present there is no leg edema. PHYSICAL EXAMINATION: The patient is moderately obese in no acute distress. Selected Entries 10/21/19 09:10 Temperature 97.6 F Temperature Oral Source Pulse Rate 102 H Respiratory 16 Rate Blood Pressure 102/77 Blood Pressure 85 Mean BP Location Right Arm BP Position Supine O2 Sat by Pulse 98 Oximetry Oxygen Delivery Room Air Method HEAD:: Is atraumatic. Normocephalic. EYES: Pupils are equal round regular reactive to light and accommodation. Extraocular movements are normal. There is no conjunctival pallor. There is no scleral icterus. EARS: Tympanic membranes are intact. External auditory canals are clear. NOSE: There is no deviated nasal septum. There is no inflammation of the nasal mucous membrane. MOUTH: Mucous memories of mouth are moist. There is no bleeding from the gums. THROAT: There is no redness of the oropharynx. There is no exudates. SKIN: There is no skin rashes. There is no particular ecchymosis. There is no skin lesions. NECK: Is supple. There is no JVD. Carotids are equal there is no bruit. There is no lymphadenopathy. There is no goiter. There is no accessory muscle respiration use. Trachea central. LUNGS: Is clear to auscultation percussion. There is no chest wall tenderness. HEART: S1-S2 is heard. There is no S3 gallop. There is no S4 gallop. S1 is of variable intensity. There is murmur of mitral regurgitation present. There is aortic sclerosis murmur without murmur of aortic stenosis or aortic regurgitation. ABDOMEN: Is soft. There is no hepatospleno megaly. Bowel sounds are well heard. EXTREMITIES: Femorals are diminished. There is no femoral bruits. There is trace pedal edema. There is no DVT or cellulitis. There is no calf tenderness. FELT CEMENTER: The patient is also slow mentation but moves all 4 extremities. PSYCHIATRIC: It is difficult to assess the patient's psychiatric status since the patient is a very slow mentation. The patient does not appear to be agitated or anxious. MPRESSION/RECOMMENDATION: Labs- All tests 24 hr 10/21/19 10/21/19 10/21/19 08:33 11:50 16:12 Sodium Potassium Chloride Carbon Dioxide Anion Gap BUN Creatinine Est GFR ( Amer) Est GFR (MDRD) Non-Af Glucose POC Glucose 225 H 332 H 154 H Calcium Total Bilirubin Direct Bilirubin Neonat Total Bilirubin Neonat Direct Bilirubin Neonat Indirect Bili AST ALT Alkaline Phosphatase Total Protein Albumin 10/21/19 10/21/19 17:46 21:17 Sodium 134.0 L Potassium 3.8 Chloride 101 Carbon Dioxide 25 Anion Gap 8 BUN 40 H Creatinine 1.26 H Est GFR ( Amer) > 60 Est GFR (MDRD) Non-Af 55 L Glucose 181 H POC Glucose 212 H Calcium 8.3 L Total Bilirubin 0.5 Direct Bilirubin 0.1 Neonat Total Bilirubin Not Reportable Neonat Direct Bilirubin Not Reportable Neonat Indirect Bili Not Reportable AST 23 ALT 18 Alkaline Phosphatase 55 Total Protein 5.1 L Albumin 2.6 L Chest X-Ray 10/16/19 10:17 IMPRESSION: Borderline cardiomegaly without a superimposed acute cardiopulmonary process. Chest X-Ray 10/16/19 16:45 IMPRESSION: Right jugular central line tip superior vena cava, no pneumothorax. Mild cardiomegaly 1. 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 Once the patient's current heart failure is well controlled would recommend getting an IV Lexiscan Cardiolite stress test to assess if the patient has underlying coronary artery disease of significance. This can be done as an outpatient. Continue beta- anne and digoxin. Note that the patient has been started on Entresto. After a week or so would increase the dosage of Entresto. 2. Atrial fibrillation: Continue beta-blockers and digoxin. Continue Xarelto. 3. Diabetes mellitus status post treatment for DKA: Continue antidiabetic medication. 4. Hypertension: Blood pressure seems to be well controlled. 5. Prior history of CVA: Medications reviewed. Medical regimen and management plan discussed with Dr. Crawford. Medical decision making is of moderate complexity. 40 minutes spent on this patient with more than 50% of time spent in direct patient care. Will sign off and follow the patient as an outpatient as the patient desires to follow-up with me. We will recheck the patient's echo in 3 months and if ejection fraction is 35% or below then would recommend that the patient be referred for AICD placement. Also will get an outpatient IV Lexiscan Cardiolite stress test prior to this. As discussed with Dr. Crawford will sign off.
[2019-10-22 06:21] LABS: ALBUMIN 2.5 g/dL (3.5-5.0); ALKALINE PHOSPHATASE 56 U/L (38-126); ANION GAP 10 (5-19); ASPARTATE AMINO TRANSFERASE 19 U/L (17-59); BILIRUBIN,DIRECT 0.1 mg/dL (0.0-0.4); BILIRUBIN,TOTAL 0.5 mg/dL (0.2-1.3); BLOOD UREA NITROGEN 31 mg/dL (7-20); CALCIUM 8.2 mg/dL (8.4-10.2); CARBON DIOXIDE 22 mmol/L (22-30); CHLORIDE 103 mmol/L (98-107); GLUCOSE 196 mg/dL (75-110); POTASSIUM 3.2 mmol/L (3.6-5.0); TOTAL PROTEIN 4.8 g/dL (6.3-8.2)
[2019-10-22] MEDS: METFORMIN HCL 500 MG TABLET PO SCH ×2 (08:30→23:08)
[2019-10-22] MEDS: INSULIN LISPRO 100 UNIT/ML 3 ML VIAL SUBCUT SCH ×4 (08:31→22:08)
[2019-10-22] MEDS: SITAGLIPTIN PHOSPHATE 50 MG TABLET PO SCH (10:01)
[2019-10-22] MEDS: SERTRALINE HCL 50 MG TABLET PO SCH (10:01)
[2019-10-22] MEDS: CARVEDILOL 12.5 MG TABLET PO SCH ×2 (10:02→22:12)
[2019-10-22] MEDS: ATORVASTATIN CALCIUM 20 MG TABLET PO SCH (10:02)
[2019-10-22] MEDS: SACUBITRIL/VALSARTAN 24 MG/26 MG TABLET PO SCH ×2 (10:02→22:07)
[2019-10-22] MEDS: RIVAROXABAN 10 MG TABLET PO SCH (10:02)
[2019-10-22] MEDS: DIGOXIN 0.125 MG TABLET PO SCH (10:04)
[2019-10-22] MEDS ORDERED: Empagliflozin [Jardiance] 25 MG PO ONE (17:10)
--- NOTE | 2019-10-22 20:36 | PDOC PROGRESS REPORT ---
Subjective Progress Note for:: 10/22/19 Subjective:: Patient seen by the bedside, the plan is for transfer to shelter for rehab, correct hypokalemia Reason For Visit: DIABETIC KETOACIDOSIS DEHYDRATION ATRIAL Physical Exam Vital Signs: Temp Pulse Resp BP Pulse Ox 98.2 F 98 18 107/76 100 10/22/19 17:00 10/22/19 17:00 10/22/19 17:00 10/22/19 17:00 10/22/19 17:00 Intake & Output 10/21/19 10/22/19 10/23/19 06:59 06:59 06:59 Intake Total 760 1120 1593 Output Total 0 Balance 760 1120 1593 Weight 104.6 kg 104.3 kg General appearance: PRESENT: no acute distress Eye exam: PRESENT: PERRLA Respiratory exam: PRESENT: clear to auscultation kamla Cardiovascular exam: PRESENT: +S1, +S2 GI/Abdominal exam: PRESENT: soft Neurological exam: PRESENT: alert, CN II-XII grossly intact Results Laboratory Results: 10/19/19 05:18 10/22/19 05:45 10/22/19 05:45 Sodium 134.6 L Potassium 3.2 L Chloride 103 Carbon Dioxide 22 Anion Gap 10 BUN 31 H Creatinine 1.10 Est GFR ( Amer) > 60 Glucose 196 H Calcium 8.2 L Total Bilirubin 0.5 AST 19 Alkaline Phosphatase 56 Total Protein 4.8 L Albumin 2.5 L 10/16/19 21:15 Blood Blood Culture - Final NO GROWTH IN 5 DAYS 10/16/19 19:51 Blood Blood Culture - Final NO GROWTH IN 5 DAYS 10/16/19 10/16/19 10/16/19 10:12 10:12 10:12 Creatine Kinase Cancelled Cancelled CK-MB (CK-2) Cancelled Troponin I Cancelled NT-Pro-B Natriuret Pep Cancelled 10/16/19 10/16/19 10/16/19 10:12 14:59 14:59 Creatine Kinase 102 CK-MB (CK-2) Cancelled 1.48 Troponin I Cancelled 0.039 NT-Pro-B Natriuret Pep Cancelled 3650 H 10/16/19 10/16/19 10/16/19 21:15 21:15 21:15 Creatine Kinase 86 CK-MB (CK-2) 1.40 Troponin I 0.040 NT-Pro-B Natriuret Pep 3010 H 10/17/19 10/17/19 10/17/19 05:40 05:40 11:40 Creatine Kinase 67 CK-MB (CK-2) 1.49 1.22 Troponin I 0.039 0.024 NT-Pro-B Natriuret Pep 10/17/19 11:40 Creatine Kinase 54 L CK-MB (CK-2) Troponin I NT-Pro-B Natriuret Pep Impressions: Chest X-Ray 10/16/19 16:45 IMPRESSION: Right jugular central line tip superior vena cava, no pneumothorax. Mild cardiomegaly Assessment & Plan - Diagnosis (1) Diabetic ketoacidosis Qualifiers: Diabetes mellitus type: type 2 Diabetes mellitus complication detail: without coma Qualified Code(s): E11.10 - Type 2 diabetes mellitus with ketoacidosis without coma Is this a current diagnosis for this admission?: Yes (2) Atrial fibrillation with rapid ventricular response Is this a current diagnosis for this admission?: Yes (3) Acute systolic heart failure Is this a current diagnosis for this admission?: Yes - Time Time Spent with patient: 35 or more minutes Level of Care: IMCU
[2019-10-22] MEDS ORDERED: POTASSI CL 20 MEQ/50 ML RIDER 20 MEQ/50 ML RTUPB IV ONE (20:45)
[2019-10-22] MEDS: SITAGLIPTIN PO SCH (21:02)
[2019-10-22] MEDS: METFORMIN PO SCH (21:02)
[2019-10-22] MEDS: MELATONIN 3 MG TABLET PO SCH (22:12)
[2019-10-23] MEDS: INSULIN LISPRO 100 UNIT/ML 3 ML VIAL SUBCUT SCH ×4 (08:39→22:08)
[2019-10-23] MEDS: ATORVASTATIN CALCIUM 20 MG TABLET PO SCH (09:31)
[2019-10-23] MEDS: SACUBITRIL/VALSARTAN 24 MG/26 MG TABLET PO SCH ×2 (09:31→22:07)
[2019-10-23] MEDS: SERTRALINE HCL 50 MG TABLET PO SCH (09:31)
[2019-10-23] MEDS: CARVEDILOL 12.5 MG TABLET PO SCH ×2 (09:31→22:06)
[2019-10-23] MEDS: RIVAROXABAN 10 MG TABLET PO SCH (09:32)
[2019-10-23] MEDS: Empagliflozin [Jardiance] 25 MG PO SCH (09:33)
[2019-10-23] MEDS: DIGOXIN 0.125 MG TABLET PO SCH (09:34)
[2019-10-23] MEDS: METFORMIN PO SCH (17:48)
[2019-10-23] MEDS: SITAGLIPTIN PO SCH (17:48)
--- NOTE | 2019-10-23 21:04 | PDOC PROGRESS REPORT ---
Subjective Progress Note for:: 10/23/19 Subjective:: Patient seen by the bedside, there is no new complaints, Awaiting transfer to rehab Reason For Visit: DIABETIC KETOACIDOSIS DEHYDRATION ATRIAL Physical Exam Vital Signs: Temp Pulse Resp BP Pulse Ox 98.2 F 95 16 106/60 99 10/23/19 19:52 10/23/19 19:52 10/23/19 19:52 10/23/19 19:52 10/23/19 19:52 Intake & Output 10/22/19 10/23/19 10/24/19 06:59 06:59 06:59 Intake Total 1120 1863 240 Output Total 50 Balance 1120 1863 190 Weight 104.3 kg 104.5 kg General appearance: PRESENT: no acute distress Eye exam: PRESENT: PERRLA Respiratory exam: PRESENT: clear to auscultation kamla Cardiovascular exam: PRESENT: +S1, +S2 GI/Abdominal exam: PRESENT: soft Neurological exam: PRESENT: alert Results Laboratory Results: 10/19/19 05:18 10/22/19 05:45 10/16/19 10/16/19 10/16/19 10:12 10:12 10:12 Creatine Kinase Cancelled Cancelled CK-MB (CK-2) Cancelled Troponin I Cancelled NT-Pro-B Natriuret Pep Cancelled 10/16/19 10/16/19 10/16/19 10:12 14:59 14:59 Creatine Kinase 102 CK-MB (CK-2) Cancelled 1.48 Troponin I Cancelled 0.039 NT-Pro-B Natriuret Pep Cancelled 3650 H 10/16/19 10/16/19 10/16/19 21:15 21:15 21:15 Creatine Kinase 86 CK-MB (CK-2) 1.40 Troponin I 0.040 NT-Pro-B Natriuret Pep 3010 H 10/17/19 10/17/19 10/17/19 05:40 05:40 11:40 Creatine Kinase 67 CK-MB (CK-2) 1.49 1.22 Troponin I 0.039 0.024 NT-Pro-B Natriuret Pep 10/17/19 11:40 Creatine Kinase 54 L CK-MB (CK-2) Troponin I NT-Pro-B Natriuret Pep Impressions: Chest X-Ray 10/16/19 16:45 IMPRESSION: Right jugular central line tip superior vena cava, no pneumothorax. Mild cardiomegaly Assessment & Plan - Diagnosis (1) Diabetic ketoacidosis Qualifiers: Diabetes mellitus type: type 2 Diabetes mellitus complication detail: without coma Qualified Code(s): E11.10 - Type 2 diabetes mellitus with ketoacidosis without coma Is this a current diagnosis for this admission?: Yes Plan: Adjust medication for diabetes (2) Atrial fibrillation with rapid ventricular response Is this a current diagnosis for this admission?: Yes Plan: Rate controlled (3) Acute systolic heart failure Is this a current diagnosis for this admission?: Yes - Time Time Spent with patient: 35 or more minutes Level of Care: IMCU
[2019-10-23] MEDS: MELATONIN 3 MG TABLET PO SCH (22:07)
[2019-10-24] MEDS: INSULIN LISPRO 100 UNIT/ML 3 ML VIAL SUBCUT SCH ×4 (08:07→22:18)
[2019-10-24 09:01] LABS: APPEARANCE,URINE CLEAR; BILIRUBIN,URINE NEGATIVE (NEGATIVE); COLOR,URINE STRAW; GLUCOSE, URINE >=500 mg/dL (NEGATIVE); KETONES,URINE 20 mg/dL (NEGATIVE); LEUKOCYTE ESTERASE,URINE NEGATIVE (NEGATIVE); NITRITE,URINE NEGATIVE (NEGATIVE); PROTEIN,URINE NEGATIVE (NEGATIVE); URINE SPECIFIC GRAVITY 1.021; UROBILINOGEN,URINE NEGATIVE mg/dL (<2.0)
[2019-10-24 09:30] LABS: URINE AMPHETAMINES SCREEN NEGATIVE; URINE BARBITURATES SCREEN NEGATIVE; URINE BENZODIAZEPINES SCREEN NEGATIVE; URINE COCAINE SCREEN NEGATIVE; URINE MARIJUANA (THC) SCREEN NEGATIVE; URINE METHADONE SCREEN NEGATIVE; URINE PHENCYCLIDINE SCREEN NEGATIVE
[2019-10-24] MEDS: RIVAROXABAN 10 MG TABLET PO SCH (09:30)
[2019-10-24] MEDS: Empagliflozin [Jardiance] 25 MG PO SCH (09:30)
[2019-10-24] MEDS: SACUBITRIL/VALSARTAN 24 MG/26 MG TABLET PO SCH ×2 (09:30→22:09)
[2019-10-24] MEDS: DIGOXIN 0.125 MG TABLET PO SCH (09:30)
[2019-10-24] MEDS: CARVEDILOL 12.5 MG TABLET PO SCH ×2 (09:30→22:17)
[2019-10-24] MEDS: SERTRALINE HCL 50 MG TABLET PO SCH (09:30)
[2019-10-24] MEDS: ATORVASTATIN CALCIUM 20 MG TABLET PO SCH (09:30)
[2019-10-24] MEDS: POTASSIUM CHLORIDE 20 MEQ PACKET PO SCH ×2 (17:08→22:17)
[2019-10-24] MEDS: METFORMIN PO SCH (17:08)
[2019-10-24] MEDS: SITAGLIPTIN PO SCH (17:08)
[2019-10-24] MEDS: MELATONIN 3 MG TABLET PO SCH (22:17)
[2019-10-25 07:19] LABS: ABSOLUTE EOSINOPHILS # (AUTO) 0.1 10^3/uL (0.0-0.6); ABSOLUTE MONOCYTES (AUTO) 0.9 10^3/uL (0.1-1.4); ABSOLUTE NEUT (AUTO) 3.6 10^3/uL (1.7-8.2); BASOPHILS % (AUTO) 0.4 % (0-2); EOSINOPHILS % (AUTO) 2.1 % (0-6); HEMATOCRIT 36.3 % (37.9-51.0); HEMOGLOBIN 12.2 g/dL (13.5-17.0); LYMPHOCYTES % (AUTO) 17.9 % (13-45); MEAN CORPUSCULAR HEMOGLOBIN 31.1 pg (27.0-33.4); MEAN CORPUSCULAR HGB CONC 33.8 g/dL (32.0-36.0); MEAN CORPUSCULAR VOLUME 92 fl (80-97); MONOCYTES % (AUTO) 16.3 % (3-13); PLATELET COUNT 154 10^3/uL (150-450); RED BLOOD COUNT 3.93 10^6/uL (4.35-5.55); RED CELL DISTRIBUTION WIDTH 13.6 % (11.5-14.0); SEGMENTED NEUTROPHILS % (AUTO) 63.3 % (42-78); TOTAL CELLS COUNTED % (AUTO) 100 %; WHITE BLOOD COUNT 5.7 10^3/uL (4.0-10.5)
[2019-10-25 07:25] LABS: ALBUMIN 2.5 g/dL (3.5-5.0); ALKALINE PHOSPHATASE 52 U/L (38-126); ANION GAP 7 (5-19); ASPARTATE AMINO TRANSFERASE 19 U/L (17-59); BILIRUBIN,DIRECT 0.1 mg/dL (0.0-0.4); BILIRUBIN,TOTAL 0.3 mg/dL (0.2-1.3); BLOOD UREA NITROGEN 21 mg/dL (7-20); CALCIUM 8.4 mg/dL (8.4-10.2); CARBON DIOXIDE 25 mmol/L (22-30); CHLORIDE 108 mmol/L (98-107); GLUCOSE 183 mg/dL (75-110); POTASSIUM 3.9 mmol/L (3.6-5.0); TOTAL PROTEIN 4.9 g/dL (6.3-8.2)
[2019-10-25] MEDS: INSULIN LISPRO 100 UNIT/ML 3 ML VIAL SUBCUT SCH ×4 (08:21→22:12)
[2019-10-25] MEDS: SACUBITRIL/VALSARTAN 24 MG/26 MG TABLET PO SCH ×2 (09:20→22:11)
[2019-10-25] MEDS: ATORVASTATIN CALCIUM 20 MG TABLET PO SCH (09:20)
[2019-10-25] MEDS: SERTRALINE HCL 50 MG TABLET PO SCH (09:20)
[2019-10-25] MEDS: RIVAROXABAN 10 MG TABLET PO SCH (09:20)
[2019-10-25] MEDS: DIGOXIN 0.125 MG TABLET PO SCH (09:20)
[2019-10-25] MEDS: Empagliflozin [Jardiance] 25 MG PO SCH (09:20)
[2019-10-25] MEDS: CARVEDILOL 12.5 MG TABLET PO SCH ×2 (09:20→22:04)
--- NOTE | 2019-10-25 14:53 | PDOC PROGRESS REPORT ---
Subjective Progress Note for:: 10/24/19 Subjective:: Patient denied any chest pain, SOB, palpation, or dyspnea. No fever or chills. No nausea, vomiting, abdominal pain, constipation or diarrhea. Reason For Visit: DIABETIC KETOACIDOSIS DEHYDRATION ATRIAL Physical Exam Vital Signs: Temp Pulse Resp BP Pulse Ox 98.1 F 56 L 16 123/65 100 10/24/19 15:15 10/24/19 15:15 10/24/19 15:15 10/24/19 15:15 10/24/19 15:15 Intake & Output 10/23/19 10/24/19 10/25/19 06:59 06:59 06:59 Intake Total 1863 240 Output Total 975 Balance 1863 -735 Weight 104.5 kg 103.3 kg General appearance: PRESENT: no acute distress, obese Head exam: PRESENT: atraumatic, normocephalic Eye exam: PRESENT: conjunctiva pink. ABSENT: scleral icterus Ear exam: PRESENT: normal external ear exam Mouth exam: PRESENT: moist Respiratory exam: PRESENT: clear to auscultation kamla Cardiovascular exam: PRESENT: irregular rhythm, +S1, +S2. ABSENT: diastolic murmur, systolic murmur Vascular exam: ABSENT: pallor GI/Abdominal exam: PRESENT: normal bowel sounds, soft. ABSENT: distended, guarding, mass, organolmegaly, rebound, tenderness Extremities exam: ABSENT: pedal edema Neurological exam: PRESENT: alert, awake, oriented to person, oriented to place, oriented to time, oriented to situation, CN II-XII grossly intact. ABSENT: motor sensory deficit Psychiatric exam: PRESENT: appropriate affect, normal mood. ABSENT: homicidal ideation, suicidal ideation Skin exam: PRESENT: dry, warm Results Laboratory Results: 10/19/19 05:18 10/22/19 05:45 10/24/19 08:40 Urine Color STRAW Urine Appearance CLEAR Urine pH 5.0 Ur Specific [place] 1.021 Urine Protein NEGATIVE Urine Glucose (UA) >=500 H Urine Ketones 20 H Urine Blood NEGATIVE Urine Nitrite NEGATIVE Ur Leukocyte Esterase NEGATIVE Urine WBC (Auto) 2 Urine RBC (Auto) 1 10/16/19 10/16/19 10/16/19 10:12 10:12 10:12 Creatine Kinase Cancelled Cancelled CK-MB (CK-2) Cancelled Troponin I Cancelled NT-Pro-B Natriuret Pep Cancelled 10/16/19 10/16/19 10/16/19 10:12 14:59 14:59 Creatine Kinase 102 CK-MB (CK-2) Cancelled 1.48 Troponin I Cancelled 0.039 NT-Pro-B Natriuret Pep Cancelled 3650 H 10/16/19 10/16/19 10/16/19 21:15 21:15 21:15 Creatine Kinase 86 CK-MB (CK-2) 1.40 Troponin I 0.040 NT-Pro-B Natriuret Pep 3010 H 10/17/19 10/17/19 10/17/19 05:40 05:40 11:40 Creatine Kinase 67 CK-MB (CK-2) 1.49 1.22 Troponin I 0.039 0.024 NT-Pro-B Natriuret Pep 10/17/19 11:40 Creatine Kinase 54 L CK-MB (CK-2) Troponin I NT-Pro-B Natriuret Pep Impressions: Chest X-Ray 10/16/19 16:45 IMPRESSION: Right jugular central line tip superior vena cava, no pneumothorax. Mild cardiomegaly Assessment & Plan - Diagnosis (1) Diabetic ketoacidosis Qualifiers: Diabetes mellitus type: type 2 Diabetes mellitus complication detail: without coma Qualified Code(s): E11.10 - Type 2 diabetes mellitus with ketoacidosis without coma Is this a current diagnosis for this admission?: Yes Plan: Maintain on current medication management. (2) Acute systolic heart failure Is this a current diagnosis for this admission?: Yes Plan: Maintain on current medication management. (3) Atrial fibrillation with rapid ventricular response Is this a current diagnosis for this admission?: Yes Plan: Maintain on current medication management. (4) Diabetes mellitus type 2 in obese Is this a current diagnosis for this admission?: Yes Plan: Maintain on current medication management. (5) Hyperlipidemia Qualifiers: Hyperlipidemia type: unspecified Qualified Code(s): E78.5 - Hyperlipidemia, unspecified Is this a current diagnosis for this admission?: Yes Plan: Maintain on current medication management. (6) Hypokalemia Is this a current diagnosis for this admission?: Yes Plan: Patient will receive potassium supplementation therapy. - Time Time Spent with patient: 25-34 minutes Level of Care: IMCU Medications reviewed and adjusted accordingly: Yes Anticipated discharge: Home with Homehealth Within: Other - Inpatient Certification Based on my medical assessment, after consideration of the patient's comorbidities, presenting symptoms, or acuity I expect that the services needed warrant INPATIENT care.: Yes I certify that my determination is in accordance with my understanding of Medicare's requirements for reasonable and necessary INPATIENT services [42 CFR 412.3e].: Yes Medical Necessity: Significant Comorbidiites Make Outpatient Treatment Too Risky, Need Close Monitoring Due to Risk of Patient Decompensation, Need For Continuous Telemetry Monitoring, Risk of Complication if Not Cared For in Hospital, Risk of Diagnosis Which Will Require Inpatient Eval/Care/Monitoring Post Hospital Care: D/C Ndt Inspector Documentation - Plan Summary Plan Summary: Maintain on current medication management. Patient will receive potassium supplementation therapy. Obtain CMP and CBC with diff in am.
--- NOTE | 2019-10-25 14:58 | PDOC PROGRESS REPORT ---
Subjective Progress Note for:: 10/25/19 Subjective:: Patient denied any chest pain or difficulty with breathing. No fever or chills. No nausea, vomiting, or abdominal pain. Reason For Visit: DIABETIC KETOACIDOSIS DEHYDRATION ATRIAL Physical Exam Vital Signs: Temp Pulse Resp BP Pulse Ox 97.8 F 88 18 110/60 99 10/25/19 11:29 10/25/19 11:29 10/25/19 11:29 10/25/19 11:29 10/25/19 11:29 Intake & Output 10/24/19 10/25/19 10/26/19 06:59 06:59 06:59 Intake Total 240 480 480 Output Total 975 375 900 Balance -735 105 -420 Weight 103.3 kg 103.9 kg Physical Exam: General appearance: PRESENT: no acute distress, obese Head exam: PRESENT: atraumatic, normocephalic Eye exam: PRESENT: conjunctiva pink. ABSENT: pallor, scleral icterus Ear exam: PRESENT: normal external ear exam Mouth exam: PRESENT: moist Respiratory exam: PRESENT: clear to auscultation kamla Cardiovascular exam: PRESENT: irregular rhythm, +S1, +S2. ABSENT: diastolic murmur, systolic murmur GI/Abdominal exam: PRESENT: normal bowel sounds, soft. ABSENT: distended, guarding, mass, organomegaly, rebound, tenderness Extremities exam: ABSENT: pedal edema Neurological exam: PRESENT: alert, awake, oriented to person, oriented to place, oriented to time, oriented to situation, CN II-XII grossly intact. ABSENT: motor sensory deficit Psychiatric exam: PRESENT: appropriate affect, normal mood. ABSENT: homicidal ideation, suicidal ideation Skin exam: PRESENT: dry, warm Results Laboratory Results: 10/25/19 06:40 10/25/19 06:40 10/25/19 10/25/19 06:40 06:40 WBC 5.7 RBC 3.93 L Hgb 12.2 L Hct 36.3 L MCV 92 MCH 31.1 MCHC 33.8 RDW 13.6 Plt Count 154 Seg Neutrophils % 63.3 Sodium 140.3 Potassium 3.9 Chloride 108 H Carbon Dioxide 25 Anion Gap 7 BUN 21 H Creatinine 1.17 Est GFR ( Amer) > 60 Glucose 183 H Calcium 8.4 Total Bilirubin 0.3 AST 19 Alkaline Phosphatase 52 Total Protein 4.9 L Albumin 2.5 L 10/16/19 10/16/19 10/16/19 10:12 10:12 10:12 Creatine Kinase Cancelled Cancelled CK-MB (CK-2) Cancelled Troponin I Cancelled NT-Pro-B Natriuret Pep Cancelled 10/16/19 10/16/19 10/16/19 10:12 14:59 14:59 Creatine Kinase 102 CK-MB (CK-2) Cancelled 1.48 Troponin I Cancelled 0.039 NT-Pro-B Natriuret Pep Cancelled 3650 H 10/16/19 10/16/19 10/16/19 21:15 21:15 21:15 Creatine Kinase 86 CK-MB (CK-2) 1.40 Troponin I 0.040 NT-Pro-B Natriuret Pep 3010 H 10/17/19 10/17/19 10/17/19 05:40 05:40 11:40 Creatine Kinase 67 CK-MB (CK-2) 1.49 1.22 Troponin I 0.039 0.024 NT-Pro-B Natriuret Pep 10/17/19 11:40 Creatine Kinase 54 L CK-MB (CK-2) Troponin I NT-Pro-B Natriuret Pep Impressions: Chest X-Ray 10/16/19 16:45 IMPRESSION: Right jugular central line tip superior vena cava, no pneumothorax. Mild cardiomegaly Assessment & Plan - Diagnosis (1) Diabetic ketoacidosis Qualifiers: Diabetes mellitus type: type 2 Diabetes mellitus complication detail: without coma Qualified Code(s): E11.10 - Type 2 diabetes mellitus with ketoacidosis without coma Is this a current diagnosis for this admission?: Yes (2) Acute systolic heart failure Is this a current diagnosis for this admission?: Yes (3) Atrial fibrillation with rapid ventricular response Is this a current diagnosis for this admission?: Yes (4) Diabetes mellitus type 2 in obese Is this a current diagnosis for this admission?: Yes (5) Hyperlipidemia Qualifiers: Hyperlipidemia type: unspecified Qualified Code(s): E78.5 - Hyperlipidemia, unspecified Is this a current diagnosis for this admission?: Yes (6) Hypokalemia Is this a current diagnosis for this admission?: Yes - Time Time Spent with patient: 25-34 minutes Level of Care: IMCU Medications reviewed and adjusted accordingly: Yes Anticipated discharge: Home with Homehealth Within: Other - Inpatient Certification Based on my medical assessment, after consideration of the patient's comorbidities, presenting symptoms, or acuity I expect that the services needed warrant INPATIENT care.: Yes I certify that my determination is in accordance with my understanding of Medicare's requirements for reasonable and necessary INPATIENT services [42 CFR 412.3e].: Yes Medical Necessity: Significant Comorbidiites Make Outpatient Treatment Too Risky, Need Close Monitoring Due to Risk of Patient Decompensation, Need For Continuous Telemetry Monitoring, Risk of Complication if Not Cared For in Hospital, Risk of Diagnosis Which Will Require Inpatient Eval/Care/Monitoring Post Hospital Care: D/C Fish Seiner Documentation - Plan Summary Plan Summary: Continue current medication management.
[2019-10-25] MEDS: METFORMIN PO SCH (17:03)
[2019-10-25] MEDS: SITAGLIPTIN PO SCH (17:03)
[2019-10-25] MEDS: MELATONIN 3 MG TABLET PO SCH (22:12)
[2019-10-26] MEDS: INSULIN LISPRO 100 UNIT/ML 3 ML VIAL SUBCUT SCH ×4 (08:31→22:10)
[2019-10-26] MEDS: CARVEDILOL 12.5 MG TABLET PO SCH ×2 (09:41→22:09)
[2019-10-26] MEDS: ATORVASTATIN CALCIUM 20 MG TABLET PO SCH (09:42)
[2019-10-26] MEDS: SACUBITRIL/VALSARTAN 24 MG/26 MG TABLET PO SCH ×2 (09:42→22:09)
[2019-10-26] MEDS: Empagliflozin [Jardiance] 25 MG PO SCH (09:42)
[2019-10-26] MEDS: RIVAROXABAN 10 MG TABLET PO SCH (09:43)
[2019-10-26] MEDS: SERTRALINE HCL 50 MG TABLET PO SCH (09:43)
[2019-10-26] MEDS: DIGOXIN 0.125 MG TABLET PO SCH (09:46)
[2019-10-26] MEDS: SITAGLIPTIN PO SCH (17:21)
[2019-10-26] MEDS: METFORMIN PO SCH (17:21)
--- NOTE | 2019-10-26 21:09 | PDOC TRANSFER SUMMARY ---
Impression - Admit/DC Date/PCP Admission Date/Primary Care Provider: 10/16/19 17:47 DESIRAE STEWART MD Discharge Date: 10/27/19 - Discharge Diagnosis (1) Diabetic ketoacidosis Is this a current diagnosis for this admission?: Yes (2) Atrial fibrillation with rapid ventricular response Is this a current diagnosis for this admission?: Yes (3) Acute systolic heart failure Is this a current diagnosis for this admission?: Yes - Additional Information Discharge Diet: Cardiac, Diabetic Discharge Activity: Activity As Tolerated, Balance Activity w/Rest, Weigh Daily Referrals: DESIRAE STEWART MD [Primary Care Provider] - 11/02/19 1:30 pm Home Medications: Acetaminophen [Tylenol Extra Strength 500 mg Tablet] 500 mg PO Q6HP PRN 10/16/19 Atorvastatin Calcium [Lipitor 20 mg Tablet] 20 mg PO DAILY 10/16/19 Digoxin [Lanoxin 0.125 mg Tablet] 0.125 mg PO DAILY 10/16/19 Empagliflozin [Jardiance] 25 mg PO DAILY 10/16/19 Melatonin [Melatonin 3 mg Tablet] 3 mg PO QPM 10/16/19 Rivaroxaban [Xarelto] 20 mg PO DAILY 10/16/19 Sertraline HCl [Zoloft] 25 mg PO DAILY 10/16/19 Sitagliptin Phos/Metformin HCl [Janumet Xr 100-1,000 mg Tablet] 1 each PO QPM 10/16/19 Carvedilol [Coreg 12.5 mg Tablet] 25 mg PO Q12 tablet 10/26/19 Glucagon,Human Recombinant [Glucagen Inj 1 mg Vial] 1 mg IM PRN PRN vial 10/26/19 Insulin Lispro [Humalog Insulin (Lispro) 100 unit/mL] 0 - 12 unit SUBCUT ACHS unit 10/26/19 Sacubitril/Valsartan [Entresto 24 mg/26 mg Tablet] 1 tab PO Q12 #0 tablet 10/26/19 History of Present Illiness History of Present Illness: OREN CONTRERAS is a 78 year old male, he has a history of chronic atrial fibrillation, type 2 diabetes mellitus, he was on the schedule to be seen in the office but did not show up, he was brought to the emergency room by the [id number] for evaluation of altered mental status, in the emergency room he was found to be in DKA with atrial fibrillation with rapid ventricular response. Patient apparently has not been compliant with his medication, he has poor medication adherence, is confused cannot answer question appropriately. The serum glucose was 498 when he presented to the ER the anion gap was 26, v enous pH was 7.28, he was started on insulin drip and also Cardizem drip and admitted to intermediate care unit for further evaluation. Hospital Course Hospital Course: Patient was admitted for the management of diabetes ketoacidosis due to nonmedication adherence, acute systolic heart failure, atrial fibrillation with RVR. He was treated with insulin drip, Cardizem infusion, 2D echo was done, the ejection fraction of left ventricle was 35%. He was seen consultation by cardiology. Medications adjusted, he has a history of atrial fibrillation he was maintained on Xarelto Physical Exam Vital Signs: Temp Pulse Resp BP Pulse Ox 98.2 F 94 17 115/60 100 10/26/19 15:39 10/26/19 19:00 10/26/19 15:39 10/26/19 15:39 10/26/19 15:39 Intake & Output 10/25/19 10/26/19 10/27/19 06:59 06:59 06:59 Intake Total 480 720 840 Output Total 375 1700 500 Balance 105 -980 340 Weight 103.9 kg 105.1 kg General appearance: PRESENT: no acute distress Eye exam: PRESENT: PERRLA Respiratory exam: PRESENT: clear to auscultation kamla GI/Abdominal exam: PRESENT: soft Neurological exam: PRESENT: alert, CN II-XII grossly intact Results Laboratory Results: WBC 5.7 10^3/uL (4.0-10.5) 10/25/19 06:40 RBC 3.93 10^6/uL (4.35-5.55) L 10/25/19 06:40 Hgb 12.2 g/dL (13.5-17.0) L 10/25/19 06:40 Hct 36.3 % (37.9-51.0) L 10/25/19 06:40 MCV 92 fl (80-97) 10/25/19 06:40 MCH 31.1 pg (27.0-33.4) 10/25/19 06:40 MCHC 33.8 g/dL (32.0-36.0) 10/25/19 06:40 RDW 13.6 % (11.5-14.0) 10/25/19 06:40 Plt Count 154 10^3/uL (150-450) 10/25/19 06:40 Lymph % (Auto) 17.9 % (13-45) 10/25/19 06:40 [place] % (Auto) 16.3 % (3-13) H 10/25/19 06:40 Eos % (Auto) 2.1 % (0-6) 10/25/19 06:40 Baso % (Auto) 0.4 % (0-2) 10/25/19 06:40 Absolute Neuts (auto) 3.6 10^3/uL (1.7-8.2) 10/25/19 06:40 Absolute Lymphs (auto) 1.0 10^3/uL (0.5-4.7) 10/25/19 06:40 Absolute Monos (auto) 0.9 10^3/uL (0.1-1.4) 10/25/19 06:40 Absolute Eos (auto) 0.1 10^3/uL (0.0-0.6) 10/25/19 06:40 Absolute Basos (auto) 0.0 10^3/uL (0.0-0.2) 10/25/19 06:40 Total Counted 100 10/18/19 04:47 Seg Neutrophils % 63.3 % (42-78) 10/25/19 06:40 Seg Neuts % (Manual) 74 % (42-78) 10/18/19 04:47 Band Neutrophils % 2 % (3-5) L 10/18/19 04:47 Lymphocytes % (Manual) 12 % (13-45) L 10/18/19 04:47 Monocytes % (Manual) 11 % (3-13) 10/18/19 04:47 Eosinophils % (Manual) 1 % (0-6) 10/18/19 04:47 Basophils % (Manual) 0 % (0-2) 10/18/19 04:47 Abs Neuts (Manual) 8.0 10^3/uL (1.7-8.2) 10/18/19 04:47 Abs Lymphs (Manual) 1.3 10^3/uL (0.5-4.7) 10/18/19 04:47 Abs Monocytes (Manual) 1.2 10^3/uL (0.1-1.4) 10/18/19 04:47 Absolute Eos (Manual) 0.1 10^3/uL (0.0-0.6) 10/18/19 04:47 Abs Basophils (Manual) 0.0 10^3/uL (0.0-0.2) 10/18/19 04:47 Platelet Comment DECREASED 10/18/19 04:47 RBC Morph Comment NORMO-CYTIC/CHROMIC 10/18/19 04:47 PT 20.8 SEC (11.4-15.4) H 10/19/19 05:18 INR 1.77 10/19/19 05:18 APTT 35.2 SEC (23.5-35.8) 10/19/19 05:18 VBG pH 7.28 (7.30-7.42) L 10/16/19 11:01 VBG pCO2 30.8 mmHg (35-63) L 10/16/19 11:01 VBG HCO3 14.3 mmol/L (20-32) L 10/16/19 11:01 VBG Base Excess -10.9 mmol/L 10/16/19 11:01 Sodium 140.3 mmol/L (137-145) 10/25/19 06:40 Potassium 3.9 mmol/L (3.6-5.0) 10/25/19 06:40 Chloride 108 mmol/L (98-107) H 10/25/19 06:40 Carbon Dioxide 25 mmol/L (22-30) 10/25/19 06:40 Anion Gap 7 (5-19) 10/25/19 06:40 BUN 21 mg/dL (7-20) H 10/25/19 06:40 Creatinine 1.17 mg/dL (0.52-1.25) 10/25/19 06:40 Est GFR ( Amer) > 60 (>60) 10/25/19 06:40 Est GFR (Non-Af Amer) Cancelled 10/16/19 10:12 Est GFR (Non-Af Amer) Cancelled 10/16/19 10:12 Est GFR (MDRD) Non-Af > 60 (>60) 10/25/19 06:40 Glucose 183 mg/dL (75-110) H 10/25/19 06:40 POC Glucose 220 mg/dL (70-110) H 10/26/19 15:52 Hemoglobin A1c % 14.0 % (4.7-6.0) H 10/17/19 05:40 Lactic Acid 2.0 mmol/L (0.7-2.1) 10/16/19 14:59 Calcium 8.4 mg/dL (8.4-10.2) 10/25/19 06:40 Phosphorus 3.9 mg/dL (2.5-4.5) 10/19/19 05:18 Magnesium 2.0 mg/dL (1.6-2.3) 10/19/19 05:18 Total Bilirubin 0.3 mg/dL (0.2-1.3) 10/25/19 06:40 Direct Bilirubin 0.1 mg/dL (0.0-0.4) 10/25/19 06:40 Neonat Total Bilirubin Not Reportable 10/25/19 06:40 Neonat Direct Bilirubin Not Reportable 10/25/19 06:40 Neonat Indirect Bili Not Reportable 10/25/19 06:40 AST 19 U/L (17-59) 10/25/19 06:40 ALT 16 U/L (<50) 10/25/19 06:40 Alkaline Phosphatase 52 U/L (38-126) 10/25/19 06:40 Creatine Kinase 54 U/L (55-170) L 10/17/19 11:40 CK-MB (CK-2) 1.22 ng/mL (<4.55) 10/17/19 11:40 Troponin I 0.024 ng/mL 10/17/19 11:40 NT-Pro-B Natriuret Pep 3010 pg/mL (<450) H 10/16/19 21:15 Total Protein 4.9 g/dL (6.3-8.2) L 10/25/19 06:40 Albumin 2.5 g/dL (3.5-5.0) L 10/25/19 06:40 Triglycerides 122 mg/dL (<150) 10/17/19 05:40 Cholesterol 222.57 mg/dL (0-200) H 10/17/19 05:40 LDL Cholesterol Direct 185 mg/dL (<100) H 10/17/19 05:40 VLDL Cholesterol 24.0 mg/dL (10-31) 10/17/19 05:40 HDL Cholesterol 34 mg/dL (>40) L 10/17/19 05:40 Lipase 279.9 U/L (23-300) 10/16/19 14:59 EGFR Cancelled 10/16/19 10:12 EGFR Cancelled 10/16/19 10:12 TSH 0.51 uIU/mL (0.47-4.68) 10/16/19 14:59 Free T4 1.20 ng/dL (0.78-2.19) 10/16/19 14:59 Urine Color STRAW 10/24/19 08:40 Urine Appearance CLEAR 10/24/19 08:40 Urine pH 5.0 (5.0-9.0) 10/24/19 08:40 Ur Specific [place] 1.021 10/24/19 08:40 Urine Protein NEGATIVE mg/dL (NEGATIVE) 10/24/19 08:40 Urine Glucose (UA) >=500 mg/dL (NEGATIVE) H 10/24/19 08:40 Urine Ketones 20 mg/dL (NEGATIVE) H 10/24/19 08:40 Urine Blood NEGATIVE (NEGATIVE) 10/24/19 08:40 Urine Nitrite NEGATIVE (NEGATIVE) 10/24/19 08:40 Urine Bilirubin NEGATIVE (NEGATIVE) 10/24/19 08:40 Urine Urobilinogen NEGATIVE mg/dL (<2.0) 10/24/19 08:40 Ur Leukocyte Esterase NEGATIVE (NEGATIVE) 10/24/19 08:40 Urine WBC (Auto) 2 /HPF 10/24/19 08:40 Urine RBC (Auto) 1 /HPF 10/24/19 08:40 Squamous Epi Cells Auto <1 /HPF 10/24/19 08:40 Urine Mucus (Auto) RARE /LPF 10/24/19 08:40 Urine Ascorbic Acid NEGATIVE (NEGATIVE) 10/24/19 08:40 Stool Occult Blood POSITIVE (NEGATIVE) 10/19/19 22:31 Digoxin 1.52 ng/mL (0.8-2.0) 10/16/19 14:59 Urine Opiates Screen NEGATIVE 10/24/19 08:40 Urine Methadone Screen NEGATIVE 10/24/19 08:40 Ur Barbiturates Screen NEGATIVE 10/24/19 08:40 Ur Phencyclidine Scrn NEGATIVE 10/24/19 08:40 Ur Amphetamines Screen NEGATIVE 10/24/19 08:40 U Benzodiazepines Scrn NEGATIVE 10/24/19 08:40 Urine Cocaine Screen NEGATIVE 10/24/19 08:40 U Marijuana (THC) Screen NEGATIVE 10/24/19 08:40 10/16/19 10/16/19 10/16/19 10:12 10:12 14:59 CK-MB (CK-2) Cancelled Cancelled 1.48 Troponin I Cancelled Cancelled 0.039 NT-Pro-B Natriuret Pep Cancelled Cancelled 3650 H 10/16/19 10/16/19 10/17/19 21:15 21:15 05:40 CK-MB (CK-2) 1.40 1.49 Troponin I 0.040 0.039 NT-Pro-B Natriuret Pep 3010 H 10/17/19 11:40 CK-MB (CK-2) 1.22 Troponin I 0.024 NT-Pro-B Natriuret Pep Impressions: Chest X-Ray 10/16/19 10:17 IMPRESSION: Borderline cardiomegaly without a superimposed acute cardiopulmonary process. Chest X-Ray 10/16/19 16:45 IMPRESSION: Right jugular central line tip superior vena cava, no pneumothorax. Mild cardiomegaly Stroke Is this a Stroke Patient?: No Acute Heart Failure - Is this a Heart Failure Patient?: No
[2019-10-26] MEDS: MELATONIN 3 MG TABLET PO SCH (22:09)
[2019-10-27] MEDS: DIGOXIN 0.125 MG TABLET PO SCH (09:26)
[2019-10-27] MEDS: INSULIN LISPRO 100 UNIT/ML 3 ML VIAL SUBCUT SCH ×2 (09:27→12:33)
[2019-10-27] MEDS: CARVEDILOL 12.5 MG TABLET PO SCH (09:28)
[2019-10-27] MEDS: SACUBITRIL/VALSARTAN 24 MG/26 MG TABLET PO SCH (09:28)
[2019-10-27 12:01] VITALS: BP 95/64
[2019-10-27] MEDS: ATORVASTATIN CALCIUM 20 MG TABLET PO SCH (12:29)
[2019-10-27] MEDS: SERTRALINE HCL 50 MG TABLET PO SCH (12:29)
[2019-10-27] MEDS: RIVAROXABAN 10 MG TABLET PO SCH (12:30)
== END 2019-10-27 13:03 | DRG 637 ==
LOC: ER 09:32 → EH 17:47 → 3S 20:10
PROVIDERS: ADMIT Internal Medicine; ATTEND Internal Medicine
PROC: 02HV33Z Insertion of Infusion Device into Superior Vena Cava, Percutaneous Approach (ICD-10-PCS; principal; 2019-10-16)
PROC: 3E02340 Introduction of Influenza Vaccine into Muscle, Percutaneous Approach (ICD-10-PCS; 2019-10-27)
DX: E11.10 Type 2 diabetes mellitus with ketoacidosis without coma (principal); I50.21 Acute systolic (congestive) heart failure; I48.20 Chronic atrial fibrillation, unspecified; I42.0 Dilated cardiomyopathy; I11.0 Hypertensive heart disease with heart failure; E66.9 Obesity, unspecified; E86.0 Dehydration; I44.4 Left anterior fascicular block; I34.0 Nonrheumatic mitral (valve) insufficiency; E87.6 Hypokalemia; E78.5 Hyperlipidemia, unspecified; I87.2 Venous insufficiency (chronic) (peripheral); Z68.35 Body mass index [BMI] 35.0-35.9, adult; Z23 Encounter for immunization; Z79.899 Other long term (current) drug therapy; Z79.4 Long term (current) use of insulin; Z91.14 Patient's other noncompliance with medication regimen; Z79.01 Long term (current) use of anticoagulants; Z86.73 Personal history of transient ischemic attack (TIA), and cerebral infarction without residual deficits
CPT/HCPCS: 36415; 71045; 80053; 80061; 80076; 80162; 80307; 81001; 82272; 82550; 82553; 82803; 82962; 83036; 83605; 83690; 83735; 83880; 84100; 84439; 84443; 84484; 85025; 85610; 85730; 87040; 90686; 93005; 93010; 93306; 96365; 96366; 96376; 99291; C1751; J1642; J1815; J3480; J3490; J7030; J7050